=== PATIENT | male | born 1995 | race Caucasian/White ===

== ENCOUNTER 2023-01-31 23:37 | Emergency (ER) | payer SELFPAY ==
[2023-01-31 23:38] VITALS: BP 142/96; PULSE 90; RESP 16; TEMP 37.2; O2SAT 97; BMI 31.9
[2023-01-31 23:39] VITALS: BP 142/96
[2023-01-31 23:40] VITALS: PULSE 86; PULSE 87; RESP 8; O2SAT 96
--- NOTE | 2023-01-31 23:40 | ECG_ITS ---
[facility] Test Date: 2023-01-31 Pat Name: Tez Griffin Department: Room: - Gender: Male Resident Manager: : 1995 Requested By: NORBERT WESTBROOK Order Number: [id number] Reading MD: NORBERT WESTBROOK Measurements Intervals Gunter Rate: 86 P: 53 RI: 158 QRS: 52 QRSD: 88 T: 34 QT: 330 QTc: 374 Interpretive Statements 1100 Sinus rhythm 2420 RSR (QR) in lead V1/V2, consistent with right ventricular conduction delay 9130 borderline ECG No previous ECG available for comparison Electronically Signed On 02-02-2023 6:21:26 EST by NORBERT WESTBROOK
[2023-01-31 23:50] VITALS: PULSE 84; RESP 12; O2SAT 96
--- NOTE | 2023-01-31 23:55 | ED_ITS ---
HPI - General Adult General Chief complaint: Weakness Stated complaint: heart palp Time Seen by Provider: 01/31/23 23:41 Source: patient Mode of arrival: ambulance Limitations: no limitations History of Present Illness HPI narrative: This 27-year-old male who uses a vapor pen is brought to the emergency department by EMS from work. The patient states that his pulse has been jumping all around. He states he felt dizzy and nauseated. The patient explained to the nurses that he has had 2 heart attacks and 2 transient ischemic attacks. We reviewed his records and have not found any records that confirm this. He was seen in this emergency department in 2015 for chest wall pain and in 2022 for facial tingling. Does not see a financial sales manager, he does not have a family physician, he does not take any current medications. He states he was nauseated but did not vomit. He has no lower extremity pain or swelling. His eyes are injected and he states that is because he has not slept in a minute . He states he has trouble sleeping. He does have a history of anxiety. Related Data Home Medications Medication Instructions Recorded Confirmed No Known Home Medications 01/31/23 01/31/23 Allergies Allergy/AdvReac Type Severity Reaction Status Date / Time No Known Drug Allergies Allergy Verified 01/31/23 23:43 Review of Systems ROS Status of ROS 10 or more systems reviewed and unremarkable except as noted in history and below [facility] Social History Smoking status: Current every day smoker Exam Narrative Exam Narrative: Nurses note and vital signs reviewed and patient is not hypoxic.Blood pressure was midly elevated at 142/96. General: The patient appears well and in no apparent distress. Patient is resting comfortably on cart. Skin: Warm, dry, no pallor noted. There is no rash noted. Head: Normocephalic, atraumatic Eye: Conjunctiva are injected, pupils are equal and reactive Ears, Nose, Mouth, and Throat: oral mucosa is moist. Cardiovascular: Regular Rate and Rhythm S1S2, pulse noted to be irregular and was in the 80s when I walked into the room and 100 by the time I left Respiratory: Patient is in no distress, no accessory muscle use, lungs are clear to auscultation, no wheezing, rales or rhonchi Back: non-tender, no CVA tenderness bilaterally to percussion. GI: Normal bowel sounds, no tenderness to palpation, no masses appreciated. No rebound, guarding, or rigidity noted. Musculoskeletal: The patient has no evidence of calf tenderness, no pitting edema, symmetrical pulses noted bilaterally Neurological: A&O x4, normal speech Psychiatric: Cooperative, flat affect Constitutional Vital Signs, click to edit/add: Last Vital Signs Temp 99 F 01/31/23 23:38 Pulse 84 02/01/23 02:37 Resp 12 01/31/23 23:50 BP 133/79 02/01/23 02:38 Pulse Ox 96 01/31/23 23:50 O2 Del Method Room Air 01/31/23 23:38 Course Vital Signs Vital signs: Vital Signs Temperature 99 F 01/31/23 23:38 Pulse Rate 90 01/31/23 23:38 Respiratory Rate 16 01/31/23 23:38 Blood Pressure 142/96 H 01/31/23 23:38 Pulse Oximetry 97 01/31/23 23:38 Oxygen Delivery Method Room Air 01/31/23 23:38 Temperature 99 F 01/31/23 23:38 Pulse Rate 84 02/01/23 02:37 Respiratory Rate 12 01/31/23 23:50 Blood Pressure 133/79 02/01/23 02:38 Pulse Oximetry 96 01/31/23 23:50 Oxygen Delivery Method Room Air 01/31/23 23:38 Medical Decision Making MDM Narrative Medical decision making narrative: 27-year-old male is brought emergency department from work. He is complaining of palpitations and stating that his heart has been racing and slowing down which has been making him nauseated and dizzy. He also has not been able to sleep for the past several nights- stating he has insomnia. He denies any mendel chest pain. He denies any tobacco use. He states that he has had 2 heart attacks in t he past and 2 transient ischemic attacks however we reviewed his history and cannot find anything to substantiate this. Additionally he does not see a financial sales manager and is not on any chronic medications. He does use a vape pen but denies tobacco use. He was placed on a monitoring and evaluation advisor and EKG was done that was a sinus rhythm at 86 beats for minute with a Q-wave in lead 3. This is compared to an EKG from June 26 of this year which is unchanged. An IV was placed and he was given IV fluids, Zofran for his nausea and 324 mg baby aspirin. He has been on a monitoring and evaluation advisor while in the emergency department at the time of this dictation his pulse is 76, blood pressure is 110/71. He has not had any hypoxia. Routine labs are reviewed. He has a normal white count and hemoglobin. He has normal electrolytes. He has a normal troponin and d-dimer. Chest x-ray is negative for acute findings. Delta troponin is.................................. Medical Records Medical records narrative: [place] [address] XRay Report Signed Patient: Tez Griffin MR#: [id number] : 1995 Acct:[id number] Age/Sex: 27 / M ADM Date: 01/31/23 Loc: ER Attending Dr: Ordering Physician: Aminata Madrigal Date of Service: 02/01/23 Procedure(s): XR chest 1V Accession Number(s): [id number] cc: Aminata Madrigal; Physician,Non-Staff M.D.~ The [address] [address] Patient Name: TEZ GRIFFIN MRN: [id number] date: 1995 Sex: M Assigned Patient Location: ER Current Patient Location: ER Accession/Order Number: [id number] Exam Date: 02/01/2023 01:08 Report Date: 02/01/2023 01:43 At the request of: AMINATA MADRIGAL Procedure: XR chest 1V EXAM: XR chest 1V HISTORY: SOB COMPARISON: None. TECHNIQUE: One view of the chest was obtained. FINDINGS: The cardiac silhouette is mildly enlarged. There are mild left basilar opacities. A calcified granuloma is seen in the lower left lung. There is no significant pneumothorax or right pleural effusion. There is a possible small left pleural effusion. No acute osseous abnormality is seen. XR/XR chest 1V IMPRESSION: 1. Mildly enlarged cardiac silhouette with a possible small left pleural effusion and left basilar atelectasis. Electronically authenticated by: Jean MONAHAN Date: 02/01/2023 01:43 Lab Data Labs: Lab Results 01/31/23 02/01/23 Range/Units 00:05 01:20 WBC 5.4 (4.0-11.0) 10^3/uL RBC 4.50 L (4.70-6.10) 10^6/uL Hgb 13.6 L (14.0-18.0) g/dL Hct 40.1 L (42.0-54.0) % MCV 89.1 (80.0-94.0) fL MCH 30.2 (25.9-34.0) pg MCHC 33.9 (29.9-35.2) g/dL RDW 11.9 (11.0-15.0) % Plt Count 251 (150-450) 10^3/uL MPV 10.8 (9.5-13.5) fL Neut % (Auto) 58.6 (43.0-75.0) % Lymph % (Auto) 29.2 (20.5-60.0) % Rich % (Auto) 10.3 (1.7-12.0) % Eos % (Auto) 1.1 (0.9-7.0) % Baso % (Auto) 0.6 (0.2-2.0) % Neut # (Auto) 3.2 (1.4-6.5) 10^3/uL Lymph # (Auto) 1.6 (1.2-3.8) 10^3/uL Rich # (Auto) 0.6 (0.3-0.8) 10^3/uL Eos # (Auto) 0.1 (0.0-0.7) 10^3/uL Baso # (Auto) 0.0 (0.0-0.1) 10^3/uL Abs Immat Gran (auto) 0.01 (0.00-0.03) 10^3/uL Imm/Tot Granulo (auto) 0.2 (0.0-0.5) % D-Dimer 0.38 (<=0.59) mg/L FEU Sodium 137 (136-145) mmol/L Potassium 4.0 (3.5-5.1) mmol/L Chloride 105 (98-107) mmol/L Carbon Dioxide 27.7 (21.0-32.0) mmol/L Anion Gap 8.3 BUN 13.0 (7.0-18.0) mg/dL Creatinine 1.13 (0.70-1.30) mg/dL Est GFR ( Amer) >60 (>=60) Est GFR (Non-Af Amer) >60 (>=60) BUN/Creatinine Ratio 11.5 Glucose 97 (74-106) mg/dL Calcium 8.9 (8.5-10.1) mg/dL Total Bilirubin 0.5 (0.2-1.0) mg/dL AST 23 (15-37) U/L ALT 52 (16-63) U/L Alkaline Phosphatase 87 (46-116) U/L Troponin I High Sens 5.4 6.3 (4.0-76.1) pg/mL Total Protein 7.8 (6.4-8.2) g/dL Albumin 3.8 (3.4-5.0) g/dL Globulin 4.0 g/dL Albumin/Globulin Ratio 0.9 ECG Data Attestation: I personally reviewed and interpreted this ECG as follows: (Sinus rhythm at 86 bpm, RSR in lead V1 and V2, Q wave in lead 3, EKG compared to an EKG from 06/26/2022. There are no changes noted) Discharge Plan Discharge Chief Complaint: Weakness Clinical Impression: Palpitations Patient Disposition: Home, Self-Care Time of Disposition Decision: 02:30 Condition: Good Prescriptions / Home Meds: No Action No Known Home Medications Instructions: Heart Palpitations (ED) Additional Instructions: Follow up with [facility] as needed. Stand Alone Forms: Portal Instructions Referrals: Physician,Non-Staff, MD [Primary Care Provider] - 1 week Discharge Date/Time: 02/01/23 02:53
[2023-02-01] VITALS (19 sets, daily range): BP systolic 119–133; BP diastolic 71–79; PULSE 66–98
[2023-02-01] MEDS: ASPIRIN 81 MG TAB.CHEW 324 MG PO (00:09)
[2023-02-01] MEDS: ONDANSETRON PF 4 MG/2 ML VIAL IV (00:09)
[2023-02-01] MEDS: 0.9 % SODIUM CHLORIDE 1,000 ML 1000 ML IV (00:10)
[2023-02-01 00:12] LABS: Basophils Percent Auto 0.6 % (0.2-2.0); Eosinophils Absolute Auto 0.1 10^3/uL (0.0-0.7); Eosinophils Percent Auto 1.1 % (0.9-7.0); Hematocrit 40.1 % (42.0-54.0); Hemoglobin 13.6 g/dL (14.0-18.0); Immature Granulocytes Abs Auto 0.01 10^3/uL (0.00-0.03); Immature Granulocytes Pct Auto 0.2 % (0.0-0.5); Lymphocytes Absolute Auto 1.6 10^3/uL (1.2-3.8); Lymphocytes Percent Auto 29.2 % (20.5-60.0); Mean Corpuscular HGB Conc 33.9 g/dL (29.9-35.2); Mean Corpuscular Hemoglobin 30.2 pg (25.9-34.0); Mean Corpuscular Volume 89.1 fL (80.0-94.0); Mean Platelet Volume 10.8 fL (9.5-13.5); Monocytes Absolute Auto 0.6 10^3/uL (0.3-0.8); Monocytes Percent Auto 10.3 % (1.7-12.0); Neutrophils Absolute Auto 3.2 10^3/uL (1.4-6.5); Neutrophils Percent Auto 58.6 % (43.0-75.0); Platelet Count 251 10^3/uL (150-450); Red Cell Distribution Width 11.9 % (11.0-15.0); White Blood Count 5.4 10^3/uL (4.0-11.0)
--- NOTE | 2023-02-01 00:18 | PC.NURSE ---
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 He also reports that he has had a previous TIA.
[2023-02-01 00:29] LABS: Alanine Aminotransferase 52 U/L (16-63); Albumin Globulin Ratio 0.9; Albumin Level 3.8 g/dL (3.4-5.0); Alkaline Phosphatase 87 U/L (46-116); Anion Gap 8.3; Aspartate Amino Transferase 23 U/L (15-37); BUN Creatinine Ratio 11.5; Bilirubin Total 0.5 mg/dL (0.2-1.0); Calcium 8.9 mg/dL (8.5-10.1); Carbon Dioxide 27.7 mmol/L (21.0-32.0); Chloride 105 mmol/L (98-107); Estimated GFR (African America >60 (>=60); Estimated GFR (Non-African Ame >60 (>=60); Glucose 97 mg/dL (74-106); Sodium 137 mmol/L (136-145); Total Protein 7.8 g/dL (6.4-8.2); Troponin I High Sensitivity 5.4 pg/mL (4.0-76.1)
[2023-02-01 00:40] LABS: D Dimer 0.38 mg/L FEU (<=0.59)
--- NOTE | 2023-02-01 01:06 | XR_ITS ---
The [address] [address] Patient Name: GAVIOTA ALVAREZ MRN: [id number] date: 1995 Sex: M Assigned Patient Location: ER Current Patient Location: ER Accession/Order Number: [id number] Exam Date: 02/01/2023 01:08 Report Date: 02/01/2023 01:43 At the request of: NATHALY MARKER Procedure: XR chest 1V EXAM: XR chest 1V HISTORY: SOB COMPARISON: None. TECHNIQUE: One view of the chest was obtained. FINDINGS: The cardiac silhouette is mildly enlarged. There are mild left basilar opacities. A calcified granuloma is seen in the lower left lung. There is no significant pneumothorax or right pleural effusion. There is a possible small left pleural effusion. No acute osseous abnormality is seen. XR/XR chest 1V IMPRESSION: 1. Mildly enlarged cardiac silhouette with a possible small left pleural effusion and left basilar atelectasis. Electronically authenticated by: Jean MONAHAN Date: 02/01/2023 01:43
[2023-02-01 01:47] LABS: Troponin I High Sensitivity 6.3 pg/mL (4.0-76.1)
== END 2023-02-01 02:53 | disposition home or self-care (01) ==
PROVIDERS: Emergency Provider Emergency Medicine
DX: R00.2 Palpitations (principal); F17.290 Nicotine dependence, other tobacco product, uncomplicated
CPT/HCPCS: 36415; 71045; 80053; 84484; 85025; 85378; 93005; 96361; 96374; 99285

== ENCOUNTER 2023-04-06 07:15 | Emergency (ER) | payer SELFPAY ==
[2023-04-06 07:20] VITALS: BP 158/97; PULSE 91; RESP 18; TEMP 37; O2SAT 98; BMI 31.9
--- OUTSIDE RECORDS SUMMARY | 2023-04-06 07:24 | XMS_ITS | CCD ---
Author Name Unknown Address [address] [place] [address] Organization [facility] Care Team Providers Care Batching Operator Name Role Phone Unavailable Primary Care Provider Unavailabl e Sam Esquivel Attending Unavailable No, Physician Primary Care Provider Unavailabl e No, Physician Primary Care Provider Unavailabl e UBALDOTORITO ROSALES Attending NAVEEN Grubbs Referring Unavailable NO, PHYSICIAN Primary Care Unavailable UBALDOTORITO Attending NAVEEN Grubbs Referring Unavailable NO, PHYSICIAN Primary Care Unavailable UBALDOTORITO Attending NAVEEN Grubbs Referring Unavailable NO, PHYSICIAN Primary Care Unavailable UBALDOTORITO Attending NAVEEN Grubbs Referring Unavailable NO, PHYSICIAN Primary Care Unavailable COURSENJADA Admitting Unavailabl e COURSEN, JADA CISSE Attending Unavailabl e NO, PHYSICIAN Primary Care Unavailable NO, PHYSICIAN Primary Care Unavailable NAVEEN KEMP Admitting Unavailable VIRIDIANANAVEEN NARAYAN Attending Unavailable JAMEEL MENDEZ Admitting Unavailable JAMEEL MENDEZ Attending Unavailable NO, PHYSICIAN Primary Care Unavailable NO, PHYSICIAN Primary Care Unavailable UBALDOTORITO Admitting Unavai lable TORITO CONNER Attending Huan ELLISON, DR JANUARY Escobar Attending Unavailable SCOT, DR JANUARY Escobar Consulting Unavailable REQUEST, NONE LISTED Primary Care Unavaila antonette ELLISON, DR JANUARY Escobar Admitting Unavailable DIMITRI CASEY Consulting Unavailable TREY CASTANON Admitting Unavailable REQUEST, DR CORRALES LISTED Primary Care UnavailTREY Santos Attending Unavailable TREY CASTANON Consulting Unavailable NADEEM BOSE Consulting Unavailable GEORGETTE ROSE Unavailable Medications Current Medications Medication Drug Class(es) Dates Sig (Normalized) Sig (Original) acetaminophen 325 mg / HYDROcodone bitartrate 5 mg oral tablet (3 sources) Opioid Agonist Start: 07-16-2020 End: 07-21-2020 HYDROcodone-acetam inophen (NORCO) 5-325 mg per tablet Indications: Pilonidal cyst with abscess Take 1 (one) tablet by mouth every 6 (six) hours as needed for pain (Days supply per fill: 5) . 18 tablet 0 07/16/2020 07/21/2020 Active Start: 07-16-2020 End: 07-16-2020 take 1 tablet by mouth every eight hours as needed 1 tablet, Oral, Every 8 hours PRN, moderate to severe pain, post op pain, Starting Sun07/16/20 at 0751 doxycycline hyclate 100 mg oral tablet (1 source) Tetracycline-class Drug Start: 05-28-2020 End: 06-07-2020 take 1 tablet by mouth twice daily doxycycline hyclate (VIBRA-TABS) 100 MG tablet Take 1 (one) tablet (100 mg total) by mouth 2 (two) times a day for 10 days . 20 tablet 0 05/28/2020 06/07/2020 Active famotidine 20 mg oral tablet (7 sources) Histamine-2 Receptor Antagonist Start: 05-20-2020 End: 06-04-2020 take 1 tablet by mouth twice daily famotidine (PEPCID) 20 MG tablet Take 1 (one) tablet (20 mg total) by mouth 2 (two) times a day for 30 doses . 30 tablet 0 05/20/2020 Active Start: 08-25-2019 End: 08-25-2019 faMOTIdine (PEPCID) tablet 2 0 mg pantoprazole 20 mg delayed release oral tablet (6 sources) Proton Pump Inhibitor Start: 05-20-2020 End: 06-19-2020 take 1 tablet by mouth once daily pantoprazole (PROTONIX) 20 MG tablet Take 1 (one) tablet (20 mg total) by mouth daily . 30 tablet 0 05/20/2020 Active polyethylene glycol 3350 22224 mg powder for oral solution (2 sources) Osmotic Laxative Start: 07-16-2020 End: 07-26-2020 polyethylene glycol (Miralax) 17 gram/dose powder Take 17 (seventeen) g by mouth 2 (two) times a day as needed . 340 g 0 07/16/2020 07/26/2020 Active psyllium 3400 mg powder for oral suspension (3 sources) Start: 07-16-2020 psyllium husk, aspartame, 3.4 gram/5.8 gram Powd 1 rounded teaspoonful 2-3 times daily, indefinitely. . 1 Bottle 11 07/16/2020 Active Completed/Discontinued Medications Medication Drug Class(es) Dates Sig (Normalized) Sig (Original) albuterol 0.83 mg/ml inhalation solution (1 source) beta2-Adrenergic Agonist Start: 07-16-2020 End: 07-16-2020 2.5 mg, Inhalation, Every 10 min PRN, wheezing, shortness of breath, Starting Sun07/16/20 at 0934, PACU (only) calcium chloride 0.0014 meq/ml / potassium chloride 0.004 meq/ml / sodium chloride 0.103 meq/ml / sodium lactate 0.028 meq/ml injectable solution (2 sources) Start: 07-16-2020 End: 07-16-2020 take 25 mL intravenously every hour 25 mL/hr, Intravenous, Continuous, Starting Sun07/16/20 at 1030, PACU (only) Use if patient already has Lactated Ringers ceFAZolin 2000 mg injection (1 source) Cephalosporin Antibacterial Start: 07-16-2020 End: 07-16-2020 ceFAZolin (ANCEF) IVPB 2 g (premix) cephalexin 500 mg oral capsule (6 sources) Cephalosporin Antibacterial Start: 06-11-2020 End: 07-14-2020 take 1 capsule by mouth four times daily cephALEXin (Keflex) 500 MG capsule Take 1 (one) capsule (500 mg total) by mouth 4 (four) times a day . 40 capsule 0 06/11/2020 07/14/2020 Discontinued (Therapy completed) Start: 05-26-2020 End: 06-05-2020 take 1 capsule by mouth four times daily cephALEXin (KEFLEX) 500 MG capsule Take 1 (one) capsule (500 mg total) by mouth 4 (four) times a day for 10 days . 40 capsule 0 05/26/2020 06/05/2020 Active 1 ml dexamethasone phosphate 10 mg/ml injection (1 source) Corticosteroid Start: 07-16-2020 End: 07-16-2020 dexamethasone (DECADRON) injection diazePAM 5 mg oral tablet (1 source) Benzodiazepine Start: 07-16-2020 End: 07-16-2020 take 5 mg by mouth once 5 mg, Oral, Once, Sun07/16/20 at 0745, For 1 dose, Pre-Procedure Start: 07-16-2020 End: 07-16-2020 take 5 mg by mouth once 5 mg, Oral, Once, Sun 1 at 0745, For 1 dose, Pre-Procedure diphenhydrAMINE hydrochloride 25 mg oral tablet (1 source) Histamine-1 Receptor Antagonist Start: 08-25-2019 End: 08-25-2019 diphenhydrAMINE (BENADRYL) tablet 25 mg Start: 08-25-2019 End: 08-25-2019 diphenhydrAMINE (BENADRYL) t ablet 25 mg 1 ml fentaNYL 0.05 mg/ml injection (2 sources) Opioid Agonist Start: 07-16-2020 End: 07-16-2020 25 mcg, Intravenous, Every 5 min PRN, Pain, Starting Sun07/16/20 at 0934, For 4 doses, PACU (only) [] Do not give more than 100 mcg while in PACU. Haloperidol (1 source) Typical Antipsychotic Start: 07-16-2020 End: 07-16-2020 take 1 mg intravenously every twenty-four hours as needed 1 mg, Intravenous, Once as needed, Nausea or vomiting, Starting Sun07/16/20 at 0934, For 1 dose, PACU (only) Administer if ondansetron (Zofran), promethazine (Phenergan), metoclopromide (REGLAN), prochlorperazine (COMPAZINE) & nbsp;ineffective/n ot ordered, or as directed by anesthesia, as needed for nausea/vomiting&nb sp;May cause QT interval prolongation. 0.5 ml HYDROmorphone hydrochloride 1 mg/ml prefilled syringe (1 source) Opioid Agonist Start: 07-16-2020 End: 07-16-2020 0.5 mg, Intravenous, Every 10 min PRN, Pain, Starting Sun07/16/20 at 0934, For 6 doses, PACU (only) [] Give if fentanyl not effective or not ordered. [] Do not give more than 3 mg total. ibuprofen 400 mg oral tablet (1 source) Nonsteroidal Anti-inflammatory Drug Start: 04-28-2020 End: 04-28-2020 ibuprofen (ADVIL,MOTRIN) tablet 800 mg 4 ml labetalol hydrochloride 5 mg/ml cartridge (1 source) beta-Adrenergic Kilo Start: 07-16-2020 End: 07-16-2020 5 mg, Intravenous, Every 5 min PRN, SBP greater than 160 or DBP greater than 90 and heart rate is greater than 90, Starting Sun07/16/20 at 0934, For 4 doses, PACU (only) [] Do not give more than 20 mg total. [] Hold for HR less than 50. Lidocaine (1 source) Antiarrhythmic, Amide Local Anesthetic Start: 07-16-2020 End: 07-16-2020 lidocaine 20 mg/mL (2 %) injection naloxone (NARCAN) injection 0.1 mg (2 sources) Start: 07-16-2020 End: 07-16-2020 naloxone (NARCAN) injection 0.1 mg Start: 07-16-2020 End: 07-16-2020 naloxone (NARCAN) injection 0.1 mg 2 ml ondansetron 2 mg/ml injection (9 sources) Serotonin-3 Receptor Antagonist Start: 07-16-2020 End: 07-16-2020 4 mg, Intravenous, Every 15 min PRN, nausea, vomiting, Starting Sun07/16/20 at 0934, For 2 doses, PACU (only) Do not give more than 2 doses. Administer first as needed for nausea/vomiting, or as directed by anesthesia Start: 07-16-2020 End: 07-16-2020 take 1 tablet by mouth once 4 mg, Oral, Once, Sun07/16/20 at 0645, F or 1 dose, Pre-Procedure Orally disintegrating tablet: Open blister pack and place tablet on the tongue; tablet is formulated to dissolve on the tongue without water; do not split tablet; if patient unable to tolerate PO ondansetron, okay to give Ondansetron 4mg IV x 1 prn nausea/voming Formulation requires tablet remain in sealed package until immediately prior to dose being administered. Start: 05-20-2020 End: 05-27-2020 take 1 tablet by mouth every eight hours as needed ondansetron (Zofran ODT) 4 MG disintegra ting tablet Dissolve 1 (one) tablet (4 mg total) on top of tongue every 8 (eight) hours as needed for nausea . 20 tablet 0 05/20/2020 Active predniSONE 20 mg oral tablet (1 source) Start: 08-25-2019 End: 08-25-2019 predniSONE (DELTASONE) table t 60 mg Start: 08-25-2019 End: 08-25-2019 predniSONE (DELTASONE) table t 60 mg promethazine hydrochloride 25 mg oral tablet (1 source) Phenothiazine Start: 07-16-2020 End: 07-16-2020 take 1 tablet by mouth every twenty-four hours as needed 12.5 mg, Oral, Once as needed, nausea, vomiting, Starting Sun07/16/20 at 0934, For 1 dose, PACU (only) Administer if ondansetron (Zofran) ineffective or not ordered, and patient can tolerate oral administration, or as directed by anesthesia, as needed for nausea/vomiting 10 ml propofol 10 mg/ml injection (1 source) General Anesthetic Start: 07-16-2020 End: 07-16-2020 propofoL (DIPRIVAN) injection 72 hr scopolamine 0.0139 mg/hr transdermal system (1 source) Anticholinergic Start: 07-16-2020 End: 07-16-2020 apply 1 dose transdermal route once as needed for nausea and vomiting 1 patch, Transdermal, Once as needed, history of post op nausea and vomiting (PONV); excludes MAC cases (pain, opthalmology, etc.) and ECTs, Starting Sun07/16/20 at 0550, For 1 dose, Pre-Procedure Apply to left mastoid. Removed prior to discharge if no PONV 1000 ml sodium chloride 9 mg/ml injection (2 sources) Start: 07-16-2020 End: 07-16-2020 take 25 mL intravenously every hour 25 mL/hr, Intravenous, Continuous, Starting Sun07/16/20 at 1030, PACU (only) Use if patient already has Normal Saline Start: 07-16-2020 End: 07-16-2020 sodium chloride 0.9% (NS) succinylcholine (ANECTINE) injection (1 source) Start: 07-16-2020 End: 07-16-2020 succinylcholine (ANECTINE) injection sulfamethoxazole 800 mg / trimethoprim 160 mg oral tablet (6 sources) Dihydrofolate Reductase Inhibitor Antibacterial, Sulfonamide Antimicrobial Start: 06-11-2020 End: 07-14-2020 take 1 tablet by mouth twice daily sulfamethoxazole-tri methoprim (BACTRIM DS,SEPTRA DS) 800-160 mg per tablet Take 1 (one) tablet by mouth 2 (two) times a day . 20 tablet 0 06/11/2020 07/14/2020 Discontinued (Therapy completed) Start: 05-26-2020 End: 06-05-2020 take 1 tablet by mouth twice daily sulfamethoxazole-trimethoprim (BACTRIM DS,SEPTRA DS) 800-160 mg per tablet Take 1 (one) tablet by mouth 2 (two) times a day for 10 days . 20 tablet 0 05/26/2020 06/05/2020 Active Problems Active Problems Problem Classification Problem Date Documented Da te Episodic/Chronic Allergic reactions (1 source) Allergic reaction; Translations: [Allergic reaction, initial encounter] Episodic Other ear and sense organ disorders (1 source) Unspecified otitis externa, left ear; Translations: [UNS OTITIS EXTERNA LEFT EAR] Onset: 02-08-2022 Chronic Other nervous system disorders (4 sources) Paresthesia of skin; Translations: [PARESTHESIA OF SKIN] Onset: 06-26-2022 Episodic Screening and history of mental health and substance abuse codes (1 source) Personal history of nicotine dependence; Translations: [PERSONAL HISTORY OF NICOTINE DEPEND] Onset: 06-28-2022 Episodic Skin and subcutaneous tissue infections (20 sources) Pilonidal cyst with abscess; Translations: [Pilonidal cyst] Onset: 06-11-2020 06-11-2020 Episodic Transient cerebral ischemia (1 source) Transient cerebral ischemic attack, unspecified; Translations: [TRANS CERBRAL ISCHEMIC ATTACK UNS] Onset: 06-28-2022 Chronic Unclassified (1 source) CONTACT W/AND (SUSP) EXPOS COVID-19; Translations: [CONTACT W/AND (SUSP) EXPOS COVID-19] Onset: 06-28-2022 Viral infection (1 source) Disease caused by 2019-nCoV; Translations: [COVID-19] Past or Other Problems Problem Classification Problem Date Documented Da te Episodic/Chronic Conditions associated with dizziness or vertigo (1 source) Dizziness and giddiness; Translations: [DIZZINESS AND GIDDINESS] Onset: 02-08-2022 Episodic Other ear and sense organ disorders (3 sources) Otalgia, left ear; Translations: [OTALGIA LEFT EAR] Onset: 02-07-2022 Episodic Other nervous system disorders (1 source) Ataxia, unspecified; Translations: [ATAXIA UNSPECIFIED] Onset: 02-08-2022 Episodic Otitis media and related conditions (1 source) Otitis media, unspecified, left ear; Translations: [OTITIS MEDIA UNSPECIFIED LEFT EAR] Onset: 02-08-2022 Episodic Results Test Name Value Interpretation Reference Range Facil toni CARDIAC JANUARY ADMITon 023 CK [Catalytic activity/Vol] 113 U/L Normal 39-308 [facility] Comment on above: Performed By: #### P TT, PT #### [facility] [address] [address] [address] Orville Radford CK.MB [Mass/Vol] ng/mL Normal <=3.60 [facility] Comment on above: Performed By: #### P TT, PT #### [facility] [address] [address] [address] Orville Radford HSTROP 5.1 pg/mL Normal 4.0-76.1 [facility] Comment on above: Result Comment: CUT- OFF POINTS HAVE BEEN ESTABLISHED BASED ON THE FOURTH UNIVERSAL DEFINITIONS OF MYOCARDIAL INFARCTION. THE UPPER REFERENCE LIMIT (URL) OF TROPONIN, DEFINED THE 99TH PERCENTILE OF cTnI DISTRIBUTION IN A REFERENCE POPULATION, HAS BEEN CONFIRMED THE DECISION THRESHOLD FOR VT DIAGNOSIS. Performed By: #### P TT, PT #### [facility] [address] [address] [address] Orville Radford PERRY 63 ng/mL Normal 16-96 [facility] Comment on above: Performed By: #### P TT, PT #### [facility] [address] [address] [address] Orville Radford CBC AUTO DIFFon 04-03-2023 BASO # 0.0 103/ul Normal 0.0-0.1 [facility] Comment on above: Performed By: #### C BC #### [facility] [address] [address] [address] Orville Radford Basophils/100 WBC (Bld) 0.4 % Normal 0.2-2.0 [facility] Comment on above: Performed By: #### C BC #### [facility] [address] [address] [address] Orville Radford EO # 0.1 103/ul Normal 0.0-0.7 [facility] Comment on above: Performed By: #### C BC #### [facility] [address] [place] [address] Dr. Orville Radford Eosinophils/100 WBC (Bld) 1.8 % Normal 0.9-7.0 [facility] Comment on above: Performed By: #### C BC #### [facility] [address] [place] [address] Dr. Orville Radford Erythrocyte distribution width (RBC) [Ratio] 11.9 % Normal 11.0-15.0 [facility] Comment on above: Performed By: #### C BC #### [facility] [address] [place] [address] Dr. Orville Radford Hematocrit (Bld) [Volume fraction] 38.1 % Critically low 42.0-54.0 [facility] Comment on above: Performed By: #### C BC #### [facility] [address] [place] [address] Dr. Orville Radford Hemoglobin (Bld) [Mass/Vol] 13.1 g/dL Critically low 14.0-18.0 [facility] Comment on above: Performed By: #### C BC #### [facility] [address] [place] [address] Dr. Orville Radford IG # 0.02 10e3/ul Normal 0.00-0.03 [facility] Comment on above: Performed By: #### C BC #### [facility] [address] [place] [address] Dr. Orville Radford IG % 0.3 % Normal 0.0-0.5 [facility] Comment on above: Performed By: #### C BC #### [facility] [address] [place] [address] Dr. Orville Radford LYMPH # 2.5 103/ul Normal 1.2-3.8 [facility] Comment on above: Performed By: #### C BC #### [facility] [address] [place] [address] Dr. Orville Radford Lymphocytes/100 WBC (Bld) 34.4 % Normal 20.5-60.0 [facility] Comment on above: Performed By: #### C BC #### [facility] [address] [place] [address] Dr. Orville Radford MANUAL DIFF REQ NO Normal [facility] Comment on above: Performed By: #### C BC #### [facility] [address] [place] [address] Dr. Orville Radford MCH (RBC) [Entitic mass] 30.1 pg Normal 25.9-34.0 [facility] Comment on above: Performed By: #### C BC #### [facility] [address] [place] [address] Dr. Orville Radford MCHC (RBC) [Mass/Vol] 34.4 g/dL Normal 29.9-35.2 [facility] Comment on above: Performed By: #### C BC #### [facility] [address] [place] [address] Dr. Orville Radford MCV (RBC) [Entitic vol] 87.6 fL Normal 80.0-94.0 [facility] Comment on above: Performed By: #### C BC #### [facility] [address] [place] [address] Dr. Orville Radford MONO # 0.8 103/ul Normal 0.3-0.8 [facility] Comment on above: Performed By: #### C BC #### [facility] [address] [place] [address] Dr. Orville Radford Monocytes/100 WBC (Bld) 11.0 % Normal 1.7-12.0 [facility] Comment on above: Performed By: #### C BC #### [facility] [address] [place] [address] Dr. Orville Radford NEUT # 3.9 103/ul Normal 1.4-6.5 [facility] Comment on above: Performed By: #### C BC #### [facility] [address] [place] [address] Dr. Orville Radford Neutrophils/100 WBC (Bld) 52.1 % Normal 43.0-75.0 [facility] Comment on above: Performed By: #### C BC #### [facility] [address] [place] [address] Dr. Orville Radford Platelet mean volume (Bld) [Entitic vol] 10.5 fL Normal 9.5-13.5 [facility] Comment on above: Performed By: #### C BC #### [facility] [address] [place] [address] Dr. Orville Radford PLT 252 103/ul Normal 150-450 [facility] Comment on above: Performed By: #### C BC #### [facility] [address] [place] [address] Dr. Orville Radford RBC 4.35 106/ul Critically low 4.70-6.10 [facility] Comment on above: Performed By: #### C BC #### [facility] [address] [place] [address] Dr. Orville Radford WBC 7.4 103/ul Normal 4.0-11.0 [facility] Comment on above: Performed By: #### C BC #### [facility] [address] [place] [address] STROKE HEAD WOon 06-27-19 CT STROKE HEAD WO INDICATION: 26 years old; Male. [Extremity weakness lasting 10 minutes. Subtle onset of numbness and tingling in left side of face and left arm. Resolved now. Anxiety attacks all week . TECHNIQUE: CT Head (ax/cor/sag reformats). Ionizing radiation dose reduced via iterative reconstruction/FBP blend and body size kV/mA adjustment. Comparison: Head CT dated 02/06/2022. FINDINGS: POSTOPERATIVE CHANGES: None. BRAIN PARENCHYMA: No focal lesions. No mass effect. No midline shift or herniation. No intraparenchymal or extra-axial hemorrhage. Normal tariq/white differentiation. VENTRICLES/EXTRA-AXI AL SPACES: Normal for patient's age. There is redemonstration of asymmetry in the size the right lateral ventricle which is asymmetrically larger than the left. The appearance is most consistent with developmental asymmetry. SINUSES/MASTOIDS: The visualized sinuses are clear. Mastoid air cells are clear. MSK: No displaced or depressed calvarial fracture is noted. OTHER: No hyperdense intraluminal thrombus. IMPRESSION: 1. No acute intracranial abnormality. No hemorrhage or mass effect. Recommend MRI with diffusion imaging for more sensitive evaluation of acute infarction. Electronically authenticated by: NADEEM BOSE Date: 2022-06-26 01:46 Normal [facility] CTA NECK WO W CONon 06-27-19 CTA NECK WO W CON CTA HEAD WO W CON, CTA NECK WO W CON INDICATION:26 years old; evaluate for infarction. TECHNIQUE: CT angiogram of the head and neck was performed. Coronal, sagittal and 3-D reformats were created and reviewed. IV contrast Omnipaque 350 100mL. No complications . Carotid stenosis measurements were made according to the NASCET criteria. Ionizing radiation dose reduced via iterative reconstruction/FBP blend and body size kV/mA adjustment. COMPARISON: Head CT dated 06/26/2022 1:26 AM. The examination is suboptimal secondary to timing issues. There is venous contrast with poor arterial opacification. The study is poorly diagnostic for this reason. FINDINGS: NECK FINDINGS: AORTIC ARCH: Normal origin of the innominate, left common carotid and left subclavian arteries. ANTERIOR CIRCULATION: Allowing for under opacification, common carotid arteries are patent. Carotid bifurcations are patent. Cervical ICA are patent. The distal cervical ICA are partially obscured by overlying venous contrast. POSTERIOR CIRCULATION: The V1, V2, and V3 segments are grossly patent allowing for under opacification. DEVELOPMENTAL ANOMALIES: None. OTHER: No thyroid nodule or adenopathy. HEAD BRAIN: Please see the report of the noncontrast head CT. ANTERIOR CIRCULATION: The intrapetrous, intracavernous, supraclinoid ICA are grossly patent intracranial termini are grossly patent. Allowing for the degree of contrast opacification, the DAVE and MCA are patent. No stenosis or thrombus. No gross evidence of aneurysm. Distal distributions appear grossly symmetric. POSTERIOR CIRCULATION: The V4 segments are grossly patent. Right PICA is patent. Basilar artery is grossly patent. SCA and DOWELER are patent. DEVELOPMENTAL ANOMALIES: None. OTHER: No gross evidence of pathologic enhancement is seen. IMPRESSION: 1. Suboptimal examination due to inadequate arterial opacification with venous contamination due to timing issues. 2. Allowing for the degree of contrast opacification, there is no gross evidence of high-grade stenosis or luminal thrombus. If there is continued suspicion for intracranial infarction, then MRI with diffusion imaging would be most sensitive. Electronically authenticated by: NADEEM BOSE Date: 2022-06-26 03:09 Normal [facility] Covid-19 PCR ([facility])on SARS-CoV-2 (COVID-19) RNA BRIANNE+probe Ql (Unsp spec) Not detected Normal NOT DETECTED [facility] Comment on above: Result Comment: This test is not yet approved or cleared by the [place] FDA. When there are no FDA-approved or cleared tests available, and other criteria are met, FDA can make tests available under an emergency access mechanism called an Emergency Use Authorization (EUA). The EUA for this test is supported by the [place] of Health and Human Service's (HHS's) declaration that circumstances exist to justify the emergency use of in vitro diagnostics for the detection and/or diagnosis of the virus that causes COVID-19. This EUA will remain in effect (meaning this test can be used) for the duration of the COVID-19 declaration justifying emergency of IVDs, unless it is terminated or revoked by FDA (after which the test may no longer be used). When diagnostic testing is negative, the possibility of a false negative should be considered in the context of a patient's recent exposures and the presence of clinical signs and symptoms consistent with SARS-CoV-2. Performed By: #### C VDTB #### [facility] [address] [place] [id number] [address] Orville Radford DRUG SCREEN RAPID (URINE)on 06-26-2022 AMP Negative Normal NEGATIVE [facility] Comment on above: Performed By: #### P TT, PT #### [facility] [address] [place] [address] Dr. Orville Radford BAR Negative Normal NEGATIVE [facility] Comment on above: Performed By: #### P TT, PT #### [facility] [address] [place] [address] Dr. Orville Radford BUP Negative Normal NEGATIVE [facility] Comment on above: Performed By: #### P TT, PT #### [facility] [address] [place] [address] Dr. Orville Radford BZO Negative Normal NEGATIVE [facility] Comment on above: Performed By: #### P TT, PT #### [facility] [address] [place] [address] Dr. Orville Radford DESHAWN Negative Normal NEGATIVE [facility] Comment on above: Performed By: #### P TT, PT #### [facility] [address] [place] [address] Dr. Orville Radford CUT-OFFS SEE BELOW Normal [facility] Comment on above: Result Comment: AMP (Amphetamine): 500ng/mL, BAR (Barbituates): 200 ng/mL, BZO (Benzodiazepines): 150 ng/mL, BUP (Buprenorphine): 10 ng/mL, DESHAWN (Cocaine): 150 ng/mL, mAMP (Methamphetamine): 500 ng/mL, MTD (Methadone): 200 ng/mL, OPI (Opiates): 100 ng/mL, OXY (Oxycodone): 100 ng/mL, PCP (Phencyclidine): 25 ng/mL, PPX (Propoxyphene): 300 ng/mL, THC (Cannabinoids): 50 ng/mL, TCA (Trycyclic Antidepressants): 300 ng/mL Performed By: #### P TT, PT #### [facility] [address] [place] [address] Dr. Orville Radford DRUG CUT HEADER DRUG CLASS TEST SYSTEM CUT-OFF CONCENTRATIONS ARE FOLLOWS: Normal [facility] Comment on above: Performed By: #### P TT, PT #### [facility] [address] [place] [address] Dr. Orville Radford mAMP Negative Normal NEGATIVE [facility] Comment on above: Performed By: #### P TT, PT #### [facility] [address] [place] [address] Dr. Orville Radford MTD Negative Normal NEGATIVE [facility] Comment on above: Performed By: #### P TT, PT #### [facility] [address] [place] [address] Dr. Orville Radford OPI Negative Normal NEGATIVE [facility] Comment on above: Performed By: #### P TT, PT #### [facility] [address] [place] [address] Dr. Orville Radford OXY Negative Normal NEGATIVE [facility] Comment on above: Performed By: #### P TT, PT #### [facility] [address] [place] [address] Dr. Orville Radford PCP Negative Normal NEGATIVE [facility] Comment on above: Performed By: #### P TT, PT #### [facility] [address] [place] [address] Dr. Orville Radford PPX Negative Normal NEGATIVE [facility] Comment on above: Performed By: #### P TT, PT #### [facility] [address] [place] [address] Dr. Orville Radford TCA Negative Normal NEGATIVE [facility] Comment on above: Performed By: #### P TT, PT #### [facility] [address] [place] [address] Dr. Orville Radford THC Negative Normal NEGATIVE [facility] Comment on above: Performed By: #### P TT, PT #### [facility] [address] [place] [address] Dr. Orville Radford ER URINE PROFILEon 3 Bilirubin Ql (U) Negative Normal NEGATIVE [facility] Comment on above: Performed By: #### D MIKAYLA, ERUR #### [facility] [address] [place] [address] Dr. Orville Radford Clarity (U) CLEAR Normal CLEAR [facility] Comment on above: Performed By: #### D MIKAYLA, ERUR #### [facility] [address] [place] [address] Dr. Orville Radford Color (U) LT. YELLOW Normal YELLOW [facility] Comment on above: Performed By: #### D MIKAYLA, ERUR #### [facility] [address] [address] [address] Orville COMBS A micrscopic examination will be performed if indicated. Normal [facility] Comment on above: Performed By: #### D MIKAYLA, ERUR #### [facility] [address] [address] [address] Orville Radford Glucose Ql (U) Negative Normal NEGATIVE [facility] Comment on above: Performed By: #### D MIKAYLA, ERUR #### [facility] [address] [address] [address] Orville Radford Hemoglobin Ql (U) Negative Normal NEGATIVE [facility] Comment on above: Performed By: #### D MIKAYLA, ERUR #### [facility] [address] [place] [address] Dr. Orville Radford Ketones Ql (U) Negative Normal NEGATIVE [facility] Comment on above: Performed By: #### D MIKAYLA, ERUR #### [facility] [address] [address] [address] Orville Radford LEUKOCYTES Negative Normal NEGATIVE [facility] Comment on above: Performed By: #### D MIKAYLA, ERUR #### [facility] [address] [place] [address] Dr. Orville Radford Nitrite Ql (U) Negative Normal NEGATIVE [facility] Comment on above: Performed By: #### D MIKAYLA, ERUR #### [facility] [address] [address] [address] Orville Radford pH (U) 6.0 [pH] Normal 5-9 [facility] Comment on above: Performed By: #### D MIKAYLA, ERUR #### [facility] [address] [address] [address] Orville Radford SPEC GRAVITY 1.010 Normal 1.005-<=1.025 [facility] Comment on above: Performed By: #### D MIKAYLA, ERUR #### [facility] [address] [place] [address] Dr. Orville Radford UA PROTEIN Negative Normal NEGATIVE/ TRACE [facility] Comment on above: Performed By: #### D MIKAYLA, ERUR #### [facility] [address] [place] [address] Dr. Orville Radford UR MICRO IND NOT INDICATED Normal [facility] [place] Comment on above: Performed By: #### D MIKAYLA, ERUR #### [facility] [address] [place] [address] Dr. Orville Radford Urobilinogen Qn (U) 0.2 {Hannah'U}/dL Normal 0.2 - 1. 0 [facility] Comment on above: Performed By: #### D MIKAYLA, ERUR #### [facility] [address] [place] [address] Dr. Orville Radford PROF 14(COMP METB)on 023 Albumin [Mass/Vol] 3.4 g/dL Normal 3.4-5.0 [facility] Comment on above: Performed By: #### P TT, PT #### [facility] [address] [place] [address] Dr. Orville Radford Albumin/Globulin [Mass ratio] 1.0 {ratio} Normal [facility] Comment on above: Performed By: #### P TT, PT #### [facility] [address] [place] [address] Dr. Orville Radford ALP [Catalytic activity/Vol] 85 U/L Normal 46-116 [facility] Comment on above: Performed By: #### P TT, PT #### [facility] [address] [place] [address] Dr. Orville Radford ALT [Catalytic activity/Vol] 79 U/L Critically high 16-63 [facility] Comment on above: Performed By: #### P TT, PT #### [facility] [address] [place] [address] Dr. Orville Radford Anion gap [Moles/Vol] 12.5 mmol/L Normal [facility] Comment on above: Performed By: #### P TT, PT #### [facility] [address] [address] [address] Orville Radford AST [Catalytic activity/Vol] 35 U/L Normal 15-37 [facility] Comment on above: Performed By: #### P TT, PT #### [facility] [address] [address] [address] Orville Radford Bilirubin [Mass/Vol] 0.5 mg/dL Normal 0.2-1.0 [facility] Comment on above: Performed By: #### P TT, PT #### [facility] [address] [address] [address] Orville Radford Calcium [Mass/Vol] 8.6 mg/dL Normal 8.5-10.1 [facility] Comment on above: Performed By: #### P TT, PT #### [facility] [address] [place] [address] Dr. Orville Radford Chloride [Moles/Vol] 102 mmol/L Normal 98-107 [facility] Comment on above: Performed By: #### P TT, PT #### [facility] [address] [address] [address] Orville Radford CO2 [Moles/Vol] 26.1 mmol/L Normal 21.0-32.0 [facility] Comment on above: Performed By: #### P TT, PT #### [facility] [address] [place] [address] Dr. Orville Radford Creatinine [Mass/Vol] 1.12 mg/dL Normal 0.70-1.30 [facility] Comment on above: Performed By: #### P TT, PT #### [facility] [address] [place] [address] Dr. Orville Radford EGFR-AF DUTCH >60 Normal >=60 [facility] Comment on above: Performed By: #### P TT, PT #### [facility] [address] [place] [address] Dr. Orville Radford EGFR-NON AF DUTCH >60 Normal >=60 [facility] Comment on above: Performed By: #### P TT, PT #### [facility] [address] [address] [address] Orville Radford Globulin (S) [Mass/Vol] 3.5 g/dL Normal [facility] Comment on above: Performed By: #### P TT, PT #### [facility] [address] [place] [address] Dr. Orville Radford Glucose [Mass/Vol] 110 mg/dL Critically high 74-106 [facility] Comment on above: Performed By: #### P TT, PT #### [facility] [address] [place] [address] Dr. Orville Radford Potassium [Moles/Vol] 3.6 mmol/L Normal 3.5-5.1 [facility] Comment on above: Performed By: #### P TT, PT #### [facility] [address] [place] [address] Dr. Orville Radford Protein [Mass/Vol] 6.9 g/dL Normal 6.4-8.2 [facility] Comment on above: Performed By: #### P TT, PT #### [facility] [address] [place] [address] Dr. Orville Radford Sodium [Moles/Vol] 137 mmol/L Normal 136-145 [facility] Comment on above: Performed By: #### P TT, PT #### [facility] [address] [place] [address] Dr. Orville Radford Urea nitrogen [Mass/Vol] 13.0 mg/dL Normal 7.0-18.0 [facility] Comment on above: Performed By: #### P TT, PT #### [facility] [address] [place] [address] Dr. Orville Radford Urea nitrogen/Creatinine [Mass ratio] 11.6 mg/mg Normal [facility] Comment on above: Performed By: #### P TT, PT #### [facility] [address] [place] [address] Dr. Orville Radford PROTIMEon 06-26-2022 INR Coag (PPP) [Relative time] 0.95 {INR} Normal [facility] Comment on above: Performed By: #### P TT, PT #### [facility] [address] [place] [address] Dr. Orville Radford INR GUIDELINES SEE BELOW Normal [facility] Comment on above: Result Comment: MALIK RED INR: 2.0 - 3.0 CONDITIONS NOT LISTED BELOW 2.5 - 3.5 FOR PROSTHETIC HEART VALVE REPLACEMENT 2.5 - 3.5 RECURRENT THROMBOSIS Performed By: #### P TT, PT #### [facility] [address] [place] [address] Dr. Orville Radford PT Coag (PPP) [Time] 10.1 s Normal 9.0-11.6 [facility] Comment on above: Performed By: #### P TT, PT #### [facility] [address] [place] [address] Dr. Orville Radford PTTon 06-26-2022 aPTT Coag (Bld) [Time] 24.2 s Normal 22.3-36.2 [facility] Comment on above: Performed By: #### P TT, PT #### [facility] [address] [place] [address] Dr. Orville Radford SYMPTOMATIC COVID-19 ANTIGEN on 06-26-2022 EUA Statement SEE BELOW Normal [facility] Comment on above: Result Comment: This test has not been FDA cleared or approved, but has been authorized by the FDA under an Emergency Use Authorization (EUA) for use by authorized laboratories certified under CLIA that meet the requirements to perform moderate or high complexity testing. This test has been authorized only for the detection of proteins from SARS-CoV-2, not for any other viruses or pathogens. The emergency use of this test is authorized for the duration of the declaration that circumstances exist justifying the authorization of emergency use of in vitro diagnostic tests for detection and/or diagnosis of Covid-19 under section 564(b)(1) of the Act, 21 U.S.C. 360bbb-3(b)(1), unless the declaration is terminated or authorization is revoked sooner. Performed By: #### P TT, PT #### [facility] [address] [place] [address] Dr. Orville Radford SARS-CoV-2 (COVID-19) RNA BRIANNE+probe Ql (Unsp spec) Negative Normal NEGATIVE [facility] Comment on above: Performed By: #### P TT, PT #### [facility] [address] [id number] Orville Radford XR CHEST 1 Von 06-26-2022 XR CHEST 1 V EXAM: XR CHEST 1 V HISTORY: Cerebrovascular accident COMPARISON: Chest x-ray 05/20/2020 TECHNIQUE: Single frontal view chest x-ray FINDINGS: No lung consolidation, large pleural effusions, pneumothorax, or acute bony abnormality. Cardiac silhouette, similar to prior exam and unremarkable. IMPRESSION: No radiographic evidence for acute chest abnormality. Electronically authenticated by: GEORGETTE ROSE Date: 2022-06-26 01:32 Normal [facility] CT HEAD WO CONon 02-07-2022 CT HEAD WO CON CT HEAD WO CON: 02/06/2022 11:26 PM EST CLINICAL HISTORY: 26 years old Male with BENIGN PAROXYSMAL VERTIGO, UNSPECIFIED EAR. Ear pain with dizziness and nausea. TECHNIQUE: CT HEAD WO CON was performed without intravenous contrast administration. Axial CT images are obtained as well as sagittal and coronal reformations. Dose reduction techniques were achieved by using automated exposure control and/or adjustment of mA and/or kV according to patient size and/or use of iterative reconstruction technique. COMPARISON: None available. FINDINGS: Asymmetric enlargement of the right lateral ventricle in comparison to the left possibly congenital. No hydrocephalus. 1No intracranial hemorrhage or extra-axial fluid collection is identified. The tariq-white matter differentiation is preserved. There is no evidence of focal mass or midline shift. No focal areas of abnormal diminished or increased attenuation are seen within the cerebral or cerebellar hemispheres. No appreciable scalp soft tissue swelling or depressed skull fractures are seen. Mucosal thickenings of the ethmoid air cells are present. The remaining paranasal sinuses appear normally aerated. Mastoid air cells are normally aerated bilaterally. IMPRESSION: No intracranial hemorrhage, mass effect or midline shift. Electronically authenticated by: DIMITRI CSAEY Date: 2022-02-07 00:31 Normal [facility] AIRWAY ETTOrdered By: Andrew Michel on 07-16-2020 Andrew Michel, BENEFITS TECHNICIAN 07/16/2020 9:12 AM ETT Airway Mask ventilation: mask ventilation not attempted Technique: intubating stylet and video laryngoscopy Type: oral Tube size: 7.5 mm Final laryngoscope: video laryngoscope 3 Location: oral Final grade: 1 Insertion attempts: 1 Placement verification: auscultation, end tidal CO2, symmetrical chest wall movement and cuff palpation Secured at: 22 cm (measured from the teeth) Secured by: tape Bite block: none Lip/tooth/tongue trauma: no [facility] AN PERIPHERAL IVOrdered By: Chase Sutton on 07-16-2020 Scott Sorto 07/16/2020 10:13 AM Peripheral IV Related to anesthetic: yes Size: 20 G Orientation: right Location: hand Site prep: alcohol Local anesthetic: none Technique: anatomical landmarks Number of attempts: 1 [facility] Glucose (Bld) [Mass/Vol]Orde red By: Torito Conner on 07-16-2020 Glucose [Mass/Vol] 93 mg/dL 65 - 99 mg/dL [facility] Interpretation and review of laboratory results Normal [facility] Glucose (Bld) [Mass/Vol]Orde red By: Nam Blair on 07-16-2020 Glucose [Mass/Vol] 93 mg/dL [facility] Interpretation and review of laboratory results Normal [facility] CT ABDOMEN PELVIS WITH IV CO NTRAST ONLYon 05-20-2020 CT ABDOMEN PELVIS WITH IV CONTRAST ONLY EXAMINATION: CT ABDOMEN PELVIS WITH IV CONTRAST ONLY HISTORY: ORDERING SYSTEM PROVIDED HISTORY: abdominal pain, hematemesis, TECHNOLOGIST PROVIDED HISTORY: Illness/Other Reason for exam: abdominal pain, hematemesis Encounter Type: Initial Additional signs and symptoms: abdominal pain, hematemesis ORDERING SYSTEM PROVIDED DIAGNOSIS CODES: COMPARISON: 05/12/2017 TECHNIQUE: Following the uneventful administration of 75 mL Isovue-370 IV contrast, helical imaging of the abdomen and pelvis was performed. Multiplanar reformats are submitted. Dose reduction techniques were achieved by using: automated exposure control and/or adjustment of mA and/or kV according to patient size and/or use of iterative reconstruction technique. FINDINGS: ABDOMEN: The lung bases are clear. The heart size is normal. No pleural or pericardial effusion. The liver demonstrates normal morphology and attenuation without focal suspicious hepatic lesion. Gallbladder is present without calcified gallstones or pericholecystic abnormality. The spleen, pancreas and adrenal glands are unremarkable. There is symmetric enhancement the kidneys. No obstructive uropathy or nephroureterolithias is. The right kidney is rotated. PELVIS: There is no free air, bowel obstruction or pneumatosis. The appendix is normal. The bladder is decompressed. The prostate gland is normal. The abdominal aorta is normal. No retroperitoneal or abdominopelvic lymphadenopathy. No acute or aggressive osseous abnormality identified. IMPRESSION: 1. No acute infectious, inflammatory or obstructive process identified in the abdomen or pelvis. Workstation ID: [id number] Dictated by: MAEVE RODNEY on Jackie May 20, 2020 2:08:01 PM EST Transcribed by: MAEVE RODNEY on [facility] May 20, 2020 2:08:01 PM EST Finalized by: MAEVE RODNEY on [facility] May 20, 2020 2:08:01 PM EST Normal [facility] Comment on above: Order Comment: Injur y/Trauma or Illness?:Illness/Other How long have you had these symptoms (acute/chronic)?:Acute Reason for exam?:abdominal pain, hematemesis Type of Exam?:Initial Additional signs and symptoms?:abdominal pain, hematemesis XR CHEST PA/APon 05-20-2020 XR CHEST PA/AP EXAMINATION: XR CHEST PA/AP 05/20/2020 1:34 pm HISTORY: ORDERING SYSTEM PROVIDED HISTORY: tachycardia, TECHNOLOGIST PROVIDED HISTORY: Illness/Other Reason for exam: Main complaint is nausea vomiting-tachycardia today-denies any chest pain or sob at this time Cancer History: n Surgery, RadiationHistory: n Encounter Type: Initial Additional signs and symptoms: na ORDERING SYSTEM PROVIDED DIAGNOSIS CODES: COMPARISON: 12/16/2019 FINDINGS: Shallow lungs, otherwise the lungs are clear. Heart size is stable. No pleural effusion or pneumothorax. No acute osseous abnormality identified. IMPRESSION: No active disease in the chest. Workstation ID: [id number] Dictated by: MAEVE RODNEY on [facility] May 20, 2020 2:02:50 PM EST Transcribed by: MAEVE RODNEY on [facility] May 20, 2020 2:02:50 PM EST Finalized by: MAEVE RODNEY on [facility] May 20, 2020 2:02:50 PM EST Normal [facility] Comment on above: Order Comment: Injur y/Trauma or Illness?:Illness/Other How long have you had these symptoms (acute/chronic)?:Acute Reason for exam?:Main complaint is nausea vomiting-tachycardia today-denies any chest pain or sob at this time History of cancer?:n Surgeries, chemotherapy, or radiation?:n Type of Exam?:Initial Additional signs and symptoms?:na COVID-19/INFLUENZA A,B MOLEC ULARon 04-28-2020 SARS-CoV-2 (COVID-19) Ab IA Ql SARS-COV-2 (JULIAN): Detected INFLUENZA A (JULIAN): Not Detected INFLUENZA B (JULIAN): Not Detected Normal Not Detected [facility] Comment on above: Order Comment: This test was performed under the FDA's Emergency Use Authorization (EUA). Testing was performed using the [facility] SARS-CoV-2 RT-PCR AND Influenza A/B Nucleic Acid Test on the [employer] System. This test has not been approved for use in asymptomatic patients and its performance in this patient population has not been evaluated. Negative results do not rule out the presence of SARS-CoV-2, influenza A, and/or influenza B. Fact sheets for the EUA can be found at the following links: For Healthcare Providers: https://www.fda.gov/media/743973/download For Patients: https://www.fda.gov/media/685785/download Performed By: #### L [id number] #### [facility] [address] [address] Cathy Puente M.D. [id number] COVID-19/Influenza A,B Molec ularOrdered By: Jaad Valerio on 04-28-2020 SARS-CoV-2 (COVID-19) RNA BRIANNE+probe Ql (Resp) Detected Abnormal Not Detected [facility] Rapid Strep ScreenOrdered By : Jada aVlerio on 04-28-2020 S. pyogenes Ag Ql (Throat) Negative Presumptive Negative for Group A Streptococcus [facility] S. pyogenes Ag Ql (Throat)Or dered By: Jada Valerio on 04-28-2020 Interpretation and review of laboratory results Normal [facility] SARS-CoV-2 (COVID-19) RNA NA A+probe Ql (Resp)Ordered By: Jada Valerio on 04-28-2020 Influenza A Not detected [facility] Detected [facility] Influ[facility] B Not detected [facility] Interpretation and review of laboratory results Abnormal [facility] This test was performed under the FDA's Emergency Use Authorization (EUA). Testing was performed using the [facility] [facility] SARS-CoV-2 RT-PCR & Influenza A/B Nucleic Acid Test on the [employer] System. This test has not been approved for use in asymptomatic patients and its performance in this patient population has not been evaluated. Negative results do not rule out the presence of SARS-CoV-2, influenza A, and/or influenza B. Fact sheets for the EUA can be found at the following links: For Healthcare Providers: https://www.StockRadar.gov/ media/894261/downloa d For Patients: https://www.StockRadar.gov/ media/981258/downloa d [facility] ED Clinical Summaryon 2019 ED Clinical Summary [address] [address] ED Clinical Summary Person Information Name: Tez Fox/[facility] Age: 24 Years : 1995 Sex: Male PCP: Marital Status: Single Phone: Race: White Ethnicity: Not or Language: [place] Citizen Visit Reason: Back pain; Abscess - perineal or perirectal; Weakness or fatigue Acuity: 4 Enc Type: Emergency Med Service: Emergency Medicine Arrival: 03/22/2020 00:17:07 Discharge: 03/22/2020 01:29:00 LOS: 000 01:12 Checkin: 03/22/2020 00:17:07 Checkout: 03/22/2020 01:29:00 Dispo Type: Home or Self Care Address: [address] [place] [address] [address] [place] [id number] Provider Notes: Diagnosis: 1:Pilonidal cyst with abscess Problems No Problems Documented Smoking Status: Smoking Status Never (less than 100 in lifetime) Functional Status: Sensory Deficits: History of Falls: Mobility Assistance Prior to Admission: ADLs: Current Level of Assistance for Self-Care/Mobility: Cognitive Status: Allergies No Known Allergies Laboratory or Other Results This Visit (last charted value for your 03/22/2020 visit) No Laboratory or Other Results This Visit Measurements: Height: Weight: Blood Pressure: /96 mmHg BMI: Procedures No Procedures Documented Immunizations No Immunizations Documented This Visit Final Med List: New Medications Printed Prescriptions doxycycline (doxycycline hyclate 100 mg oral capsule) 1 Capsules Oral (given by mouth) 2 times a day for 10 Days. Refills: 0. Last Dose: Printed Prescriptions doxycycline (doxycycline hyclate 100 mg oral capsule) 1 Capsules Oral (given by mouth) 2 times a day for 10 Days. Refills: 0. Care Team Members: Attending Physician: Sam Esquivel MD Consulting Physician: Referring Physician: Provider Role Assigned Unassigned Karina Hinojosa ED Nurse 03/22/2020 00:25:06 Alvin CRUZ, Sam Alvarado ED Provider 03/22/2020 00:40:56 Follow up: With: Address: When: Ankit Lange [address] [place] [address], [address] [place] [address] [phone] Business (1) Comments: for surgery follow up Discharge Orders: Discharge Patient 03/22/20 1:15:00 EST, Discharge to Home, Self Return to Work/School 03/22/20 0:00:00 EST, 03/24/20 0:00:00 EST, 03/22/20 0:00:00 EST Patient Education Information: Pilonidal Cyst, Infected (Incision And Drainage) [facility] Poison Help line: . [facility] Hotline: [place] Tobacco Quit Line: [place], [place]) [address]: [phone] [place], [place]) [address]: [phone] [facility] [address], [place]: [phone] Normal [facility] ED Note-Physicianon 03-22-20 ED Note-Physician Chief Complaint Pt states he has a pilonidal cyst that he has been draining since june, also c/o sciatic pain History of Present Illness Patient is a 24-year-old male who presents emergency department for evaluation of cyst to his lower back/upper buttocks. Has been present for the last several months. He states has been draining intermittently. He states pain has become worse over the last several days. He states when he gets severe he feels it radiating down his leg. He states it hurts to move either leg when pain is severe. He denies any associated fevers. He denies any recent trauma or injury. He denies any change to bowel or bladder habits. He denies any numbness to his inner thighs. Review of Systems GENERAL: [Negative for fevers] EYES: [Negative for eye pain] ENT: [Negative for sore throat] NECK: [Negative for pain] CARDIOVASCULAR: [Negative for chest pain] RESPIRATORY: [Negative for shortness of breath] ABDOMEN/GI: [Negative for abdominal pain] BACK: [Positive for pain] : [Negative for dysuria] MUSCULOSKELETAL: [Negative for arthralgias] SKIN: [Positive for abscess] NEURO: [Negative for headache] Physical Exam CONSTITUTIONAL: well appearing in no acute distress SKIN: Warm, dry, 2cm x 2 cm Area of erythema and fluctuance with surrounding induration to upper mid buttocks. No current drainage. EYES: clear conjunctiva bilaterally HENT: Normocephalic, atraumatic, moist mucus membranes NECK: no obvious swelling, normal range of motion PULMONARY: normal chest rise and fall, no respiratory distress, Breath sounds equal bilaterally CARDIOVASCULAR: regular rate, normal rhythm GASTROINTESTINAL: nondistended, non-tender, No CVA tenderness noted NEUROLOGIC: Patient is alert and oriented to person place and time, and has a GCS of 15. The cranial nerves were assessed and showed a midline tongue protrusion , bilaterally equal shoulder shrug, eyebrows raise symmetrically. Patient is able to puff out cheeks symmetrically. Sensation to light touch equal crossed forehead, cheeks, and mandible. The pupils were equal and reactive to light, extraocular movements are intact. The patient's speech was normal without any evidence of word searching or difficulty with speech. Strength was intact in the upper extremities with 5/5 strength with finger abduction, flexion and extension at elbow. Sensation to light touch was intact in the upper extremities. Patient was able to lift bilateral legs off the bed for approximate 5 seconds. 5/5 strength with big toe dorsiflexion bilaterally. Sensation to light touch equal on bilateral lower extremities. Normal gait MUSCULOSKELETAL: no gross deformities, atraumatic, lower extremities are symmetrical, nontender to palpation, no erythema PSYCHIATRIC: normal mood and affect Vitals & Measurements T: 37.1 ?C (Oral) RR: 18 BP: 139/96 SpO2: 99% Additional Vitals Peripheral Pulse Rate: 80 bpm Procedure No qualifying data available. ASA Documentation Medical Decision Making On evaluation, patient is in no distress. Normal neuro examination. Normal gait. No red flag symptoms for back pain. Patient has infected pilonidal cyst on exam. Wound was anesthetized and incision and drainage was performed. Patient was started on doxycycline. Patient tolerated procedure well. Patient was discharged with instructions to follow-up with PCP in the next 2 to 3 days. Return precautions were discussed. Incision and Drainage Procedure Note Abscess Location: [_Pilonidal cyst__] Anesthesia: [_2cc lido with epi__] Drainage amount/type: [__10cc_] Wound care (packing/type): [_dressing applied__] Specimens Removed: After verbal consent by myself with risks that include nerve, vessel or injury to underlying structures. The area was prepared in sterile fashion. The affected location was anesthesized with local anesthesia in a field block manner and the abscess was incised using an 11-blade scalpel. Loculations were broken up using blunt dissection and cavity irrigated with normal saline. The patient tolerated the procedure well and there were no apparent complications. A sterile dressing was applied. Assessment/Plan 1. Pilonidal cyst with abscess Orders: doxycycline, 1 caps, Oral, BID, X 10 days, # 20 caps, 0 Refill(s), 04/01/20 1:24:00 EST Discharge Patient Return to Work/School Refresh vitals and sections below: Problem List/Past Medical History Ongoing No qualifying data Historical No qualifying data Medications Home No active home medications Inpatient No active inpatient medications Prescriptions doxycycline hyclate 100 mg oral capsule, 100 mg, 1 caps, Oral, BID Allergies No Known Allergies Social History Alcohol Never Substance Abuse Denies All Tobacco Never (less than 100 in lifetime) Use:. Diagnostic Results XRay No qualifying data available (XRay) Computerized Tomagraphy No qualifying data available (CT) Ultrasound No qualifying data available (Ultrasound) Magnetic Resonance Imaging No qualifying data available (MRI) Electronically signed by Sam Esquivel MD 03/22/20 06:48 EST Normal [facility] Vital Signs Date Time Vital Sign Value Performing Clinician Balbina cruz 07-28-2020 14:23-0400 Body height 172.7 cm Torito Conner MD Work Phone: [facility] 07-28-2020 14:23-0400 Body mass index (BMI) [Ratio] 39.53 kg/m2 Torito Conner MD Work Phone: [facility] 07-28-2020 14:23-0400 Body weight 117.94 kg Torito Conner MD Work Phone: [facility] 07-28-2020 14:23-0400 Respiratory rate 18 /min Torito Conner MD Work Phone: [facility] 07-16-2020 11:49-0400 Body temperature 97.81 [degF] Torito Conner MD Work Phone: [facility] 07-16-2020 11:49-0400 Diastolic blood pressure 74 mm[Hg] Torito Conner MD Work Phone: [facility] 07-16-2020 11:49-0400 Heart rate 92 /min Torito Conner MD Work Phone: [facility] 07-16-2020 11:49-0400 Respiratory rate 16 /min Torito Conner MD Work Phone: [facility] 07-16-2020 11:49-0400 SaO2% (BldA) [Mass fraction] 94 % Torito Conner MD Work Phone: [facility] 07-16-2020 11:49-0400 Systolic blood pressure 116 mm[Hg] Torito Conner MD Work Phone: [facility] 07-14-2020 09:34-0400 Body height 172.7 cm Torito Conner MD Work Phone: [facility] 07-14-2020 09:34-0400 Body mass index (BMI) [Ratio] 39.53 kg/m2 Torito Conner MD Work Phone: [facility] 07-14-2020 09:34-0400 Body weight 117.94 kg Torito Conner MD Work Phone: [facility] 06-25-2020 09:45-0400 BMI (Body Mass Index) 39.53 kg/m2 [facility] 06-25-2020 09:45-0400 Body weight 117.94 kg Torito [facility] 06-25-2020 09:45-0400 BP Diastolic 86 mm[Hg] Torito [facility] 06-25-2020 09:45-0400 BP Systolic 153 mm[Hg] Torito [facility] 06-25-2020 09:45-0400 Height 172.7 cm [facility] 06-25-2020 09:45-0400 Pulse (Heart Rate) 91 /min Torito [facility] 06-25-2020 09:45-0400 Pulse Oximetry 96 % Torito [facility] 06-25-2020 09:45-0400 Respiratory Rate 18 /min Torito [facility] 06-11-2020 11:06-0400 BMI (Body Mass Index) 39.53 kg/m2 [facility] 06-11-2020 11:06-0400 Body weight 117.94 kg Torito [facility] 06-11-2020 11:06-0400 BP Diastolic 86 mm[Hg] [facility] 06-11-2020 11:06-0400 BP Systolic 133 mm[Hg] [facility] 06-11-2020 11:06-0400 Height 172.7 cm [facility] 06-11-2020 11:06-0400 Pulse (Heart Rate) 85 /min [facility] 06-11-2020 11:06-0400 Pulse Oximetry 97 % [facility] 06-11-2020 11:06-0400 Respiratory Rate 18 /min [facility] 05-28-2020 11:43-0500 BMI (Body Mass Index) 39.53 kg/m2 Torito [facility] 05-28-2020 11:43-0500 Body weight 117.94 kg Torito [facility] 05-28-2020 11:43-0500 Height 172.7 cm Torito [facility] 05-28-2020 11:43-0500 Respiratory Rate 18 /min Torito [facility] 05-26-2020 09:39-0500 BMI (Body Mass Index) 39.53 kg/m2 [facility] 05-26-2020 09:39-0500 Body Temperature 97.5 [degF] [facility] 05-26-2020 09:39-0500 Body weight 117.94 kg [facility] 05-26-2020 09:39-0500 BP Diastolic 88 mm[Hg] [facility] 05-26-2020 09:39-0500 BP Systolic 134 mm[Hg] [facility] 05-26-2020 09:39-0500 Height 172.7 cm [facility] 05-26-2020 09:39-0500 Pulse (Heart Rate) 109 /min [facility] 05-26-2020 09:39-0500 Pulse Oximetry 96 % [facility] 05-26-2020 09:39-0500 Respiratory Rate 16 /min [facility] 04-28-2020 08:49-0500 Body height 175.3 cm Jada Valerio MD Work Phone: [facility] 04-28-2020 08:49-0500 Body mass index (BMI) [Ratio] 35.29 kg/m2 Jada Valerio MD Work Phone: [facility] 04-28-2020 08:49-0500 Body temperature 97.2 [degF] Jada Valerio MD Work Phone: [facility] 04-28-2020 08:49-0500 Body weight 108.41 kg Jada Valerio MD Work Phone: [facility] 04-28-2020 08:49-0500 Diastolic blood pressure 96 mm[Hg] Jada Valerio MD Work Phone: [facility] 04-28-2020 08:49-0500 Heart rate 112 /min Jada Valerio MD Work Phone: [facility] 04-28-2020 08:49-0500 Respiratory rate 18 /min Jada Valerio MD Work Phone: [facility] 04-28-2020 08:49-0500 SaO2% (BldA) [Mass fraction] 97 % Jada Valerio MD Work Phone: [facility] 04-28-2020 08:49-0500 Systolic blood pressure 149 mm[Hg] Jada Valerio MD Work Phone: [facility] 08-25-2019 17:45-0400 BP Diastolic 83 mm[Hg] [employer] [facility] 08-25-2019 17:45-0400 BP Systolic 125 mm[Hg] [employer] [facility] [employer] [employer] 08-25-2019 17:45-0400 Pulse (Heart Rate) 80 /min [employer] [facility] [employer] 08-25-2019 17:45-0400 Pulse Oximetry 95 % [employer] 08-25-2019 17:01-0400 Body Temperature 98.2 [degF] [employer] [facility] 08-25-2019 17:01-0400 Respiratory [facility] 20 /[facility] Encounter Date Encounter Type Care Provider Facility Start: 06-26-2022 End: 06-26-2022 ambulatory TREY DAY . Facility:[facility] Start: 02-07-2022 End: 02-07-[address] JANUARY ELLISON Facility:[facility] Start: 07-28-2020 End: 07-28-2020 ambulatory TORITO CONNER [facility] Start: 07-28-2020 End: 07-28-2020 Postop follow up visit related to original px Torito Conner MD Work Phone: [facility] Comment on above: Pilonidal cyst (Prim liliana Dx) Start: 07-16-2020 End: 07-16-2020 Anesthesia consultation Chase Sutton MD Work Phone: [facility] Start: 07-16-2020 End: 07-16-2020 ambulatory PHYSICIAN [facility] Start: 07-16-2020 End: 07-16-2020 Subsequent hospital visit by physician Torito Conner MD Work Phone: [facility] Start: 06-25-2020 End: 06-25-2020 Admission to day surgery Torito Conner Work Phone: [facility] Comment on above: Pilonidal cyst (Prim liliana Dx) Start: 06-25-2020 End: 06-25-2020 ambulatory TORITO CONNER [facility] Start: 06-25-2020 End: 06-25-2020 Office outpatient visit 40 minutes Torito Conner Work Phone: [facility] Comment on above: Pilonidal cyst with abscess (Primary Dx) Start: 06-11-2020 End: 06-11-2020 Orders Only Torito Conner Work Phone: [facility] Start: 06-11-2020 End: 06-11-2020 Office outpatient visit 25 minutes Torito Conner Work Phone: [facility] Comment on above: Pilonidal cyst with abscess (Primary Dx) Start: 05-28-2020 End: 05-28-2020 ambulatory TORITO CONNER [facility] Start: 05-28-2020 End: 05-28-2020 Office outpatient new 45 minutes Torito Conner Work Phone: [facility] Comment on above: Pilonidal cyst with abscess (Primary Dx) Start: 05-26-2020 End: 05-26-2020 Emergency department patient visit PHYSICIAN GALI [facility] Start: 05-26-2020 End: 05-26-2020 Emergency department patient visit Naveen Kemp Work Phone: [facility] Emergency Department Comment on above: Pilonidal abscess (P rimary Dx) Start: 05-20-2020 End: 05-20-2020 Emergency department patient visit JAMEEL MENDEZ [facility] Start: 04-28-2020 End: 04-28-2020 Emergency department patient visit JADA VALERIO [facility] Start: 04-28-2020 End: 04-28-2020 Emergency department patient visit Jada Valerio MD Work Phone: [facility] Emergency Department Comment on above: COVID-19 (Primary Dx ) Start: 03-22-2020 End: 03-22-2020 Emergency department patient visit Sam Esquivel Facility:[facility] Start: 08-25-2019 End: 08-25-2019 Emergency department patient visit Geraldo Goyal Work Phone: [facility] Emergency Medicine Procedures Date Procedure Procedure Detail Performing Clinician Start: 07-16-2020 AN PERIPHERAL IV Chase Sutton MD Work Phone: Start: 07-16-2020 AIRWAY ETT Andrew Michel BENEFITS TECHNICIAN Work Phone: Start: 07-16-2020 Glucose measurement Reuben Conner MD Work Phone: Start: 07-16-2020 Gluc bld gluc mntr d ev cleared fda spec home use Nam Blair DO Work Phone: Start: 04-28-2020 Iaadiadoo streptococ cus group a Jada aVlerio MD Work Phone: Start: 04-28-2020 SARS-CoV-2 (COVID-19 ) RNA [Presence] in Respiratory specimen by BRIANNE with probe detection Jada Valerio MD Work Phone: Plan of Treatment Date Care Activity Detail Author Start: 11-24-2020 Influenza vaccination Sequenti al Influenza Vaccine (Season Ended) [facility] Start: 07-28-2020 End: 07-28-2020 Follow-up encounter 07/28/2020 Follow-Up General Surgery Torito Conner MD [address] [place] [address] [phone] [facility] Start: 07-16-2020 End: 07-16-2020 Hospital Encounter [facility] Comment on above: EXCISION OF PILONIDA L CYST Start: 06-25-2020 End: 06-25-2020 Office Visit 06/25/2020 Office Visit General Surgery Torito Conner MD [facility] [place] [address] [phone] [facility] Start: 06-11-2020 End: 06-11-2020 Office Visit 06/11/2020 Office Visit General Surgery Torito Conner MD [facility] [place] [address] [phone] [facility] Start: 05-28-2020 End: 05-28-2020 Office Visit 05/28/2020 Office Visit General Surgery Torito Conner MD [address] [facility] [place] [address] [phone] [facility] Start: 11-25-2019 Influenza vaccination [facility] Start: 11-25-2019 Influenza vaccinatio n given Sequential Influenza Vaccine (#1) [facility] Start: 07-19-2015 Third diphtheria, te tanus and acellular pertussis (DTaP) vaccination TDAP (ADULT) [facility] Start: 2014 Hepatitis C antibody , confirmatory test [facility]atitis C Screening [facility] Start: 2014 Hepatitis C screening Hepatitis C Sc reening [facility] Start: 2014 Tetanus vaccination [facility] Start: 2012 COVID-19 Vaccine (1 of 2) COVI D-19 Vaccine (1 of 2) [facility] Start: 2012 COVID-19 Vaccine (1) COVID-19 Vaccin e (1) [facility] Start: 07-19-2011 HIV screening HIV Screening [facility] Start: 2009 HIV screening HIV SCREENING DISCUSSION [facility] Start: 2008 Adolescent depressio n screening assessment Depression Screening (PHQ9) [facility] Start: 2008 Depression screening using PHQ-9 (Patient Health Questionnaire 9) score Depression Screening (PHQ9) [facility] Start: 07-19-2007 Vaccination for jose angel n papillomavirus [facility] Start: 07-19-1999 History and physical examination, annual for health maintenance Wellness Visit [facility] Start: 1996 Tetanus vaccination Tetanus: Every 1 0yrs [facility] Procedure on tissue specimen [facility] Comment on above: Release Upon Orderin g for 1 Occurrences starting 07/16/2020 End: 04-28-2020 Streptococcus pyogenes [Presence] in Throat by Organism specific culture Strep A Culture, Throat Microbiology PEPITO Once for 1 Occurrences starting 04/28/2020 until 04/28/2020, 1 completed [facility] Comment on above: Once for 1 Occurrenc es starting 04/28/2020 until 04/28/2020, 1 completed Streptococcus pyogen es [Presence] in Throat by Organism specific culture Strep A Culture, Throat Microbiology Routine 04/28/2020 9:24 AM EST [facility] Payers Date Payer Category Payer Unknown [id number] 2020 Self-pay 1995 Unknown [id number] [id number] 1996 Unknown [id number] [id number] 1996 Unknown [id number] 1996 Unknown [id number] 1959 Self-pay [id number] Social History Date Type Detail Facility Start: 08-25-2019 End: 04-28-2020 Tobacco smoking status NJIS Current every day smoker [facility] History of tobacco use Cigarette Smoker [facility] Start: 08-25-2019 End: 04-28-2020 Tobacco use and exposure Never used [facility] Start: 08-25-2019 Alcohol intake Lifetime non-d shaka (finding) [facility] Start: 08-25-2019 History SDOH Alcohol Frequency 1 [facility] Start: 08-25-2019 Tobacco Comment 3 cigarettes daily [facility] Sex Assigned At Not on file [facility] Exposure to SARS-CoV -2 (event) Not sure [facility] Start: 04-28-2020 End: 05-26-2020 Cigarettes smoked current (pack per day) - Reported [facility] Start: 04-28-2020 End: 05-26-2020 Alcohol intake Ex-drinker (finding) [facility] Exposure to SARS-CoV -2 (event) Yes [facility] Start: 07-14-2020 Tobacco Comment 2 cigatettes a day [facility] Start: 07-14-2020 Alcohol Comment states used t o be an alcoholic [facility] Clinical Notes 04-28-2020 to 07-29-2020 Torito Conner MD - 07/29/2020 8:25 AM EDTDischarge Instr - Other OrdersAdditional InstructionsAddendum Note - Chase Sutton MD - 07/16/2020 11:10 AM EDTProcedure Summary Note Date & Type Note Facility 07-29-2020 History of Presen t illness Narrative 07/29/2020 The patient presents after recent surgery - Mild, appropriate pain Incisions are healing well. Activity is unrestricted. Return for Follow up here as needed. Torito Conner MD ICD-10-CM ICD-9-CM 1. Pilonidal cyst L05.91 685.1 documented in this encounter [facility] 07-16-2020 Hospital Discharg e instructions Mayra Armando RN - 07/16/2020 11:53 AM EDT norco given at noon Hillary Rodney RN - 07/16/2020 Pilonidal Cyst Excision: What to Expect at Home Your Recovery You had surgery to remove a pilonidal cyst. How long it will take for you to heal depends on the way your surgery was done. If the cut (incision) was closed with stitches, it will probably take about 4 weeks to completely heal. If your incision is left open, it may take from a few weeks to several months to heal. After the incision has healed, you will have a scar where the cyst was removed. This will fade and become softer with time. Most people can go back to work and most activities after 2 to 4 weeks. Until you have completely healed, you will need to avoid strenuous exercise and activities that require long periods of sitting. This care sheet gives you a general idea about how long it will take for you to recover. But each person recovers at a different pace. Follow the steps below to get better as quickly as possible. How can you care for yourself at home? Activity Rest when you feel tired. Getting enough sleep will help you recover. Try to walk each day. Start by walking a little more than you did the day before. Bit by bit, increase the amount you walk. Walking boosts blood flow and helps prevent pneumonia and constipation. Shower as usual. Pat the area around your incision dry with a towel when you are done. Avoid baths until the wound is completely healed. Keep the area dry and clean. Ask your doctor when you can drive again. Avoid sitting for a long time or sitting on hard surfaces until your incision has healed. Most people are able to return to work within 2 to 4 weeks after surgery. Diet You can eat your normal diet. If your stomach is upset, try bland, low-fat foods like plain rice, broiled chicken, toast, and yogurt. Drink plenty of fluids (unless your doctor tells you not to). You may notice that your bowel movements are not regular right after your surgery. This is common. Try to avoid constipation and straining with bowel movements. You may want to take a fiber supplement every day. If you have not had a bowel movement after a couple of days, ask your doctor about taking a mild laxative. Medicines Your doctor will tell you if and when you can restart your medicines. He or she will also give you instructions about taking any new medicines. If you take aspirin or some other blood thinner, ask your doctor if and when to start taking it again. Make sure that you understand exactly what your doctor wants you to do. Take pain medicines exactly as directed. ? If the doctor gave you a prescription medicine for pain, take it as prescribed. ? If you are not taking a prescription pain medicine, ask your doctor if you can take an cqgf-zul-bjktcjx medicine. If your doctor prescribed antibiotics, take them as directed. Do not stop taking them just because you feel better. You need to take the full course of antibiotics. If you think your pain medicine is making you sick to your stomach: ? Take your medicine after meals (unless your doctor has told you not to). ? Ask your doctor for a different pain medicine. Incision care If your incision was closed with stitches: ? Wash the area daily with warm, soapy water and pat it dry. Don't use hydrogen peroxide or alcohol, which can slow healing. ? You may cover the area with a gauze bandage if it weeps or rubs against clothing. Change the bandage every day. ? Keep the area clean and dry. If your incision was left open to heal, change the bandage, called a dressing, as instructed by your doctor. ? Dressing changes may hurt at first. Taking pain medicine about half an hour before you change the dressing can help. ? If your dressing sticks to your wound, try soaking the dressing in warm water for about 10 minutes before you remove it. You can do this in the shower or by placing a wet washcloth over the dressing. ? You may notice greenish tariq fluid from your wound as you start to heal. This is normal. It is a sign that your wound is healing. Other instructions Use a doughnut cushion if sitting is uncomfortable. Keep the area around your wound free from hair. Ask your doctor what method of hair removal will work best. Follow-up care is a [place] part of your treatment and safety. Be sure to make and go to all appointments, and call your doctor if you are having problems. It's also a good idea to know your test results and keep a list of the medicines you take. When should you call for help? Call 911 anytime you think you may need emergency care. For example, call if: You passed out (lost consciousness). You have sudden chest pain and shortness of breath, or you cough up blood. You have severe belly pain. Call your doctor now or seek immediate medical care if: You have pain that does not get better after you take your pain medicine. Your incision was closed with stitches and the stitches come loose, or your incision comes open. Bright red blood has soaked through the bandage over your incision. You have signs of infection, such as: ? Increased pain, swelling, warmth, or redness. ? Red streaks leading from the incision. ? Pus draining from the incision. ? A fever. You have new or worse nausea or vomiting. You are too sick to your stomach to drink any fluids. You cannot keep down fluids. Watch closely for changes in your health, and be sure to contact your doctor if you have any problems. Where can you learn more? Log into your personal health record on [email or web address] and enter C004 in the Education box to learn more about Pilonidal Cyst Excision: What to Expect at Home. Current as of: September 25, 2019 Content Version: 12.8 [employer]. Care instructions adapted under license by your healthcare professional. If you have questions about a medical condition or this instruction, always ask your healthcare professional. [employer] disclaims any warranty or liability for your use of this information. documented in this encounter [facility] 07-16-2020 Miscellaneous Notes Addendum created 07/16/20 1110 by Chase Sutton MD Cosign clinical note Addendum created 07/16/20 1025 by Chase Sutton MD Edit attestation on clinical note documented in this encounter [facility] 07-16-2020 Procedure anesthe rika Narrative Procedure Name Responsible Anesthesiologist Anesthesia Start Time Anesthesia Stop Time EXCISION OF PILONIDAL CYST (N/A ) Chase Sutton MD 07/16/20 0850 07/16/20 1014 Events Date Time Event Comment 07/16/2020 0650 0846 AN Equip Check 0850 An Start 0850 Patient Verification 0850 An Start Data 0858 An Induction 0900 An Intubation 0901 Anesthesia Ready 1001 Emergence MOS OR 07 1004 An Extubation 1008 an stop data 1013 Handoff I completed my SBAR handoff to the receiving nurse in the PACU/unit. 1014 An Stop Meds Name Total fentaNYL 50 mcg lidocaine 2% 100 mg propofol 200 mg succinylcholine 140 mg ondansetron 4 mg dexamethasone 4 mg ceFAZolin (ANCEF) IVPB 2 g (premix) 2,00 0 mg lactated Ringers infusion 900 mL * Agents No agents on file. * Blood No blood administrations on file. Lines, Drains, and Airways Type Details Placement Removal Negative Pressure Wound Therapy 07/16/20; 946; Dr. Conner; Surgical; Sacral; Medial 07/16/20946 by Maeve Conley RN Wound 07/16/20; 946; Surg ical Wou; Buttock; SYSTEM 4 X 8IN HENRY 7 NEG PRESS WOUND THERAPY (x1), STRIP .5 X 4IN SKIN CLOSURE (x1), SOLUTION 2/3CC MASTISOL ADHESIVE (x4) 07/16/20946 by Maeve Conley RN Peripheral IV Placement Date: 07/16/20; Placement Time: 1000; Existing LDA Placed by: Other (Comment) (anesthesia); Orientation: Anterior, Right; Location: Hand 07/16/20 1000 by Laila Hernandez RN Peripheral IV Placement Date: 07/16/20; Placement Time: 728; Orientation: Left; Location: Hand; Site Prep: Chlorhexidine ; Local Anes: None; Inserted by: Meek Amrando RN; Patient Tolerance: Tolerated poorly (patient c/o pain upon insertion); Removal Date: 07/16/20; Removal Time: 1013 (removed via procedure documentation) 07/16/20 0729 by Hillary Rodney RN 07/16/20 1013 by Scott Sorto ETT Placement Date: 07/16/20; Placement Time: 09 (created via procedure documentation); Mask Ventilation: Mask ventilation not attempted; Type: Oral; Tube Size: 7.5 mm; Grade View: 1; Insertion Attempts: 1; Removal Date: 07/16/20; Removal Time: 1005 07/16/20 0912 by Andrew Michel CRNA 07/16/20 1005 by Scott Sorto documented in this encounter [id number] Surgical operation note* Anesthesia Postprocedure Evaluation - Scott Sorto - 07/16/2020 10:13 AM EDT Anesthesia Post Evaluation * * Refer to nursing documentation for PACU vitals * * Patient participation: patient participated Mental status: sleepy but conscious Pain management: adequate Anesthetic complications: no Nausea / vomiting: no Cardiovascular status: hemodynamically stable Respiratory / airway status: airway patent, spontaneous ventilation and face mask Postoperative hydration: acceptable Comment: Patient has satisfactorily recovered from his anesthetic. Associated attestation - Chase Sutton MD - 07/16/2020 10:25 AM EDT I have personally seen and examined the patient. I have reviewed the note and concur with the documentation of Tez Griffin. * Anesthesia Procedure Notes - Scott Sorto - 07/16/2020 10:13 AM EDT Associated Order(s): Peripheral IV Peripheral IV Related to anesthetic: yes Size: 20 G Orientation: right Location: hand Site prep: alcohol Local anesthetic: none Technique: anatomical landmarks Number of attempts: 1 *See MAR for medication administration * Anesthesia Procedure Notes - Andrew Michel CRNA - 07/16/2020 9:12 AM EDT Associated Order(s): ETT Airway ETT Airway Mask ventilation: mask ventilation not attempted Technique: intubating stylet and video laryngoscopy Type: oral Tube size: 7.5 mm Final laryngoscope: video laryngoscope 3 Location: oral Final grade: 1 Insertion attempts: 1 Placement verification: auscultation, end tidal CO2, symmetrical chest wall movement and cuff palpation Secured at: 22 cm (measured from the teeth) Secured by: tape Bite block: none Lip/tooth/tongue trauma: no *See MAR for medication administration * Anesthesia Preprocedure Evaluation - Chase Sutton MD - 07/16/2020 6:46 AM EDT ANESTHESIA PREPROCEDURE EVALUATION Anesthesia Plan ASA: 2 Type: general Airway: endotracheal tube Induction: intravenous Anesthetic plan and risks as outlined in the consent discussed with: patient Plan discussed with: Anesthesiologist Physical Exam Airway Mallampati: III TM Distance: >3 FB Neck ROM: full Mouth opening: >3 FB Cardiovascular - normal Pulmonary - normal Neurological - normal Dental Dental exam is normal and age appropriate Review of Systems / Medical History - Reviewed: ECG, patient summary, anesthesia history, nursing notes, medical history, H&P and labs / results - No history of anesthetic complications Pulmonary Positive: sleep apnea (presumptive) Neurological / Psychological - negative Cardiovascular - negative Gastrointestinal / Hepatic / Renal NPO Status > 8 hours Positive: GERD Endocrine / Musculoskeletal Comment: Hypoglycemia Positive: obesity documented in this [id number] Miscellaneous Notes* Brief Op Note - Torito Conner MD - 07/16/2020 10:12 AM EDT Brief Post Operative Note Patient Name: Tez Griffin : 1995 (24 y.o.) Date of Service: 07/16/2020 CSN: [id number] Procedure(s): EXCISION OF PILONIDAL CYST Pre-Operative Diagnoses: * Pilonidal cyst [L05.91] Post-Operative Diagnoses: * Pilonidal cyst [L05.91] Surgeon(s) and Role: * Torito Conner MD - Primary Anesthesiologist: Chase Sutton MD BENEFITS TECHNICIAN: Andrew Michel CRNA Student Nurse Buckle Stapler: Scott Sorto Scrub Person: Mikaela Estrella RN Graphite Grinder [place]ee: Maeve Conley RN Graphite Grinder Preceptor: John Almanzar RN Operative findings: Complex pilonidal cyst Intra and immediate post-operative complications: none Type of anesthesia used: General Estimated blood loss: 0 mL Estimated urine output: 0 mL Specimen(s): ID Type Source Tests Collected by Time Destination A : Tissue Pilonidal Cyst / Sinus TISSUE EXAM Torito Conner MD 07/16/2020 0921 Implant(s): * No implants in log * Drain(s): * No LDAs found * Wound(s): Wound 07/16/20 Surgical Wound Buttock (Active) Torito Conner MD 07/16/2020 10:12 AM * Op Note - Torito Conner MD - 07/16/2020 9:18 AM EDT Dictation on: 07/16/2020 10:19 AM by: TORITO CONNER [[id number]] documented in this [id number] Nurse Note* Martha Deal RN - 07/14/2020 9:40 AM EDT Pre-Operative Directions for Using Chlorhexidine (Hibiclens) Skin Cleanser Hibiclens reduces the number of germs on your skin, which will decrease the chances of developing asurgical site infection. By following the instructions below, you can be sure your skin is as free of germs as possible before your surgery and help prevent infections. DO NOT USE if you are allergic to chlorhexidine gluconate. DO NOT USE in the genital (private) areas. DO NOT USE near the eyes or ears to avoid permanent injury to those areas. 1. Shower the night before surgery AND in the morning before leaving for the hospital. 2. For each shower, you will use one half (1/2) of the Hibiclens bottle, 2 washcloths and a clean towel. 3. Shampoo and rinse hair as you normally do 4. Wash face, neck and genital area with one washcloth using an antibacterial (i.e. Dial) soap. Rinse well. Set this washcloth aside. 5. Work up a good lather on the 2nd (clean) washcloth using the bottle of Hibiclens. 6. Turn the water off to prevent rinsing the soap off too soon. 7. Gently scrub from the neck down for 5 minutes, paying special attention to the area where the surgery will be. 8. Turn water back on the rinse thoroughly. 9. Pat dry using a clean towel and put on clean clothes. 10. The Hibiclens may make your skin fell dry, but DO NOT use and powder or lotions, as this will prevent it from working as good as it should. Prior to Surgery Please do not eat after midnight on the evening prior to your surgery. You may have clear liquids up to 2 hours prior to coming in for your procedure. You may brush your teeth the morning of surgery but be sure not to swallow. No smoking or gum chewing after midnight on the evening prior to your surgery. Please do not place any pins or barrettes in your hair or apply any makeup on the morning of surgery. Please remove all nail qatari, and if the operative site is your hand, please remove all artificialnails. Please remove all piercing's and jewelry on the morning of surgery. Please shower or bathe the night before/morning of your surgery, but do not apply any lotions, makeup or powder. Please use Hibiclens shower with provided instructions if indicated by physician. If you currently utilize a walker, cane, crutches, wheelchair, or other assistive device, please bring these items with you on the day of surgery. If you use a CPAP, please bring this with you the day of surgery. Please bring your glasses/contacts and hearing aids with you - and if possible the cases that accompany these items. Pediatric patients (ages 12 and under) must be accompanied by an adult who will stay with that patient prior to surgery. Please bring an updated medication list the day of surgery of all medications, vitamins, supplements, and over the counter medications you are currently taking. Please bring baby food, bottles, underwear for small children. Please wear loose, comfortable, appropriate clothing and footwear for discharge. Remember to bring your insurance card and photo ID on the day of surgery. Parking at [place] is free - you may park and then proceed to Registration in the [facility] front lobby. Please take the following medications the morning of surgery with a sip of water unless otherwise instructed by surgeon/physician: no meds After your surgery You must have an adult present at discharge to drive you home. documented in this [id number] Hospital Discharge instructions * Instructions* Jada Valerio MD - 04/28/2020 Please return if any worsening shortness of breath, chest pain, inability eat or drink. Please follow-up with your primary doctor. Please quarantine for ten days. * Attachments The following attachments cannot be sent through Care Everywhere. * Coronavirus Disease (COVID-19): General Info ([place] Citizen) documented in this [id number] Emergency department Note* Mary Burciaga RN - 04/28/2020 10:31 AM EST Patient standing in doorway wearing exam gloves and coat talking on the phone. Patient educated on hand hygiene and discharge instructions given to patient. Patient denies any questions or needs. Ambulates to lobby no signs or symptoms of distress. * Jada Valerio MD - 04/28/2020 9:14 AM EST ED PROVIDER NOTE [facility] EMERGENCY DEPARTMENT NAME: Tez Griffin AGE: 24 y.o. : 1995 VISIT DATE: 04/28/2020 CSN: [id number] PCP: Physician No Chief Complaint Patient presents with Fever Tachycardia This is a 24-year-old male with no significant past medical history presents with subjective feversand chills and myalgias Patient reports today he has been feeling tired and fatigued. Having some subjective fevers and chills. Having muscle aches. Reports a mild sore throat. No difficulty swallowing. No drooling. No change in his voice. No difficulty breathing. Denies any chest pain or pressure. No cough or shortness of breath. No abdominal pain nausea vomiting. No diarrhea. No dysuria hematuria frequency. Past Medical History: Diagnosis Date Hypoglycemia History reviewed. No pertinent surgical history. History reviewed. No pertinent family history. Social History Socioeconomic History Marital status: Single Spouse name: Not on file Number of children: Not on file Years of education: Not on file Highest education level: Not on file Occupational History Not on file Social Needs Financial resource strain: Not on file Food insecurity Worry: Not on file Inability: Not on file Transportation needs Medical: Not on file Non-medical: Not on file Tobacco Use Smoking status: Current Every Day Smoker Packs/day: 0.25 Smokeless tobacco: Never Used Substance and Sexual Activity Alcohol use: Not Currently Drug use: Never Sexual activity: Not on file Lifestyle Physical activity Days per week: Not on file Minutes per session: Not on file Stress: Not on file Relationships Social connections Talks on phone: Not on file Gets together: Not on file Attends adventism service: Not on file Active member of club or organization: Not on file Attends meetings of clubs or organizations: Not on file Relationship status: Not on file Other Topics Concern Not on file Social History Narrative Not on file No current outpatient medications on file prior to encounter. No Known Allergies Review of Systems Constitutional: Positive for chills and fever. HENT: Negative for rhinorrhea and sore throat. Eyes: Negative for pain and redness. Respiratory: Negative for cough and shortness of breath. Cardiovascular: Negative for chest pain. Gastrointestinal: Negative for abdominal pain, constipation, diarrhea, nausea and vomiting. Genitourinary: Negative for dysuria, frequency and hematuria. Musculoskeletal: Positive for myalgias. Negative for arthralgias. Skin: Negative for rash. Neurological: Negative for numbness and headaches. Psychiatric/Behavioral: Negative for behavioral problems. Patient Vitals for the past 24 hrs: BP Temp Pulse Resp SpO2 Height Weight 04/28/20 0849 (!) 149/96 97.2 F (36.2 C) (!) 112 18 97 % 5' 9 108.4 kg (239 lb) Physical Exam Vitals signs and nursing note reviewed. Constitutional: Appearance: Normal appearance. HENT: Head: Normocephalic and atraumatic. Mouth/Throat: Mouth: Mucous membranes are moist. Eyes: Conjunctiva/sclera: Conjunctivae normal. Pupils: Pupils are equal, round, and reactive to light. Neck: Musculoskeletal: Normal range of motion and neck supple. Cardiovascular: Rate and Rhythm: Normal rate and regular rhythm. Pulmonary: Effort: Pulmonary effort is normal. Breath sounds: Normal breath sounds. Abdominal: Palpations: Abdomen is soft. Tenderness: There is no abdominal tenderness. There is no guarding. Musculoskeletal: General: No swelling or deformity. Skin: General: Skin is warm and dry. Findings: No rash. Neurological: General: No focal deficit present. Mental Status: He is alert and oriented to person, place, and time. Psychiatric: Mood and Affect: Mood normal. Laboratory & Radiographic Imaging (if done): Results for orders placed or performed during the hospital encounter of 04/28/20 COVID-19/Influenza A,B Molecular Specimen: Nasopharyngeal; Swab Result Value Ref Range SARS-CoV-2 Detected (A) Not Detected Influenza A Not Detected Not Detected Influenza B Not Detected Not Detected Rapid Strep Screen Specimen: Throat; Swab Result Value Ref Range Strep A Ag Presumptive Negative for Group A Streptococcus Presumptive Negative for Group A Streptococcus No orders to display Procedures MDM Number of Diagnoses or Management Options COVID-19 Diagnosis management comments: 24-year-old presents with subjective fevers and chills as well as myalgias Differential includes is not limited to Covid, influenza, strep throat Patient has no cough, shortness of breath, focal lung examination findings doubt pneumonia. No abdominal symptoms doubt intra-abdominal infection. No urinary symptoms doubt UTI. We will obtain Covid, flu, strep test and provide Motrin. Covid test positive. Likely etiology of symptoms. Not hypoxic or tachypneic. Will discharge home tomonitor symptoms. Quarantine for 10 days. Follow-up with primary doctor. Return if worsening shortness of breath, chest pain, difficulty breathing. Expressed understanding and agreeable with plan. The patient has been informed that they may have pre-hypertension or hypertension based on a blood pressure reading in the Emergency Department. I recommend that the patient call the primary care provider listed on their discharge instructions or a physician of their choice as soon as possible to arrange follow-up in the next 4 weeks for further evaluation of possible pre-hypertension or hypertension. . Clinical Impression: 1. COVID-19 ED Disposition ED Disposition Condition Comment Discharge Stable Tez Griffin discharged to home/self care in stable condition. Follow-up Information 1. [facility] Emergency Department. Specialty: Emergency Medicine Why: As needed [address] [place] [address] Contact information for after-discharge care Follow-up information has not been specified. Jada Valerio MD 04/28/20 1035 * Leslie Naidu RN - 04/28/2020 8:50 AM EST Bed: 09 Expected date: Expected time: Means of arrival: Comments: triage * Leslie Naidu RN - 04/28/2020 8:46 AM EST Patient states he has not felt good today. He states at work they took his temperature and it was elevated. He states they also told him his heart rate was elevated. [facility]* Diagnosis Pilonidal cyst- Primary Pilonidal cyst with abscess [facility] Diagnosis Pilonidal cyst- Primary [facility] Diagnosis COVID-19- Primary documented in this encounter [facility] Discharge Instructions * Attachments The following attachments cannot be sent through Care Everywhere. * Allergic Reaction ([place] Citizen) documented in this encounter* Attachments The following attachments cannot be sent through Care Everywhere. * Pilonidal Abscess ([place] Citizen) documented in this encounter Assessments Diagnosis Allergic reaction, initial encounter Diagnosis Pilonidal abscess- Primary Pilonidal cyst with abscess Diagnosis Pilonidal cyst with abscess- Primary Diagnosis Pilonidal cyst with abscess- Primary Pilonidal cyst- Primary Diagnosis Pilonidal cyst- Primary Pilonidal cyst Summary Purpose Family History No Family History Records FoundNo Family History Records FoundNo Family History Records FoundNo Family History Records Found Advance Directives No Advanced Directives Records FoundDocuments on File Type Date Recorded Patient Production Grader Expl anation Advance Directives and Livin g Will 05/26/2020 9:50 AM Documents on File Type Date Recorded Patient Production Grader Expl anation Advance Directives and Livin g Will 07/16/2020 5:47 AM Documents on File Type Date Recorded Patient Production Grader Expl anation Advance Directives and Livin g Will 04/28/2020 10:11 AM History of Present Illness * Torito Conner MD - 05/28/2020 12:40 PM EST ASSESSMENT Pilonidal cyst with abscess. PLAN Doxycycline prescription is sent. Patient will apply warm soaks and reevaluate in 2 weeks. DISCUSSION Patient presents with a 4 day history of pain in the intergluteal crease and 2 days of drainage from the area. He has a history of pilonidal abscess that was incised and drained last year, and this is all similar. On exam, he indeed has a pilonidal abscess with an open wound that appears to have decompressed the abscess quite while. There is no cellulitis around it. A urine culture is negative. Hemoglobin 15.3, creatinine 1.2. I have recommended oral antibiotics and warm soaks. He will follow up here in 2 weeks for reevaluation. Prescription is sent. documented in this encounter* Torito Conner MD - 06/11/2020 12:55 PM EDT Dictation on: 06/11/2020 1:00 PM by: TORITO CONNER [[id number]] documented in this encounter* Torito Conner MD - 06/25/2020 10:07 AM EDT ASSESSMENT Pilonidal cyst with small abscess. PLAN Excision of complex pilonidal cyst. DISCUSSION The patient presents for re-evaluation of a pilonidal cyst with abscess. He was able to obtain and take his course of antibiotics. He is having no discomfort and does have a small amount of occasional drainage. On exam, there is a small abscess with a tiny area of fluctuance and scant amount of pusupon palpation. Caudal to this area is a pilonidal sinus tract opening. We discussed the nature of the pilonidal cyst and abscesses and the risk of ongoing tissue destruction with inadequately treated disease. We also discussed the possibility that after surgery, the wound would be left open slightly. Surgical risk includes smoking. The patient will follow up here after excision. documented in this encounter Additional Source Comments Reason for Visit (unrecogniz ed section and content) Reason Comments Allergic Reaction Pt. stated he felt s omething on his right arm and felt pain and then redness going from his fingers to the bend of his elbow. Pt. states he feels SOB. 02 sats are 96% on Room air. Pt. states i am allergic to all bug bites . Pain 06/02. pt. denies having an epi pen with him. Reason Comments Abscess Reason Comments Cyst Pilonidal Cyst- [facility] (05/26/2020) Reason Comments Follow-up 2 week- Pilonidal Cy st Reason Comments Follow-up 2 week- pil cyst Reason Comments Post-op Pil Cyst- 07/16/2020 Reason Comments Fever Tachycardia (unrecognized sect ion and content) No Status Records FoundNo Status Records FoundNo Status Records FoundNo Status Records Found INFORMATION SOURCE (unrecogn ized section and content) DATE CREATED AUTHOR 04/08/2020 [facility] DATE CREATED AUTHOR AUTHOR'S ORGANIZ ATION 07/30/2020 [facility] DATE CREATED AUTHOR AUTHOR'S ORGANIZ ATION 09/11/2020 [facility] DATE CREATED AUTHOR AUTHOR'S ORGANIZ ATION 06/28/2022 [facility] Charleen Martinez RN - 05/26/2020 9:37 AM EST ED Notes (unrecognized secti on and content) Pt reports he had a cyst on his tailbone and was here to have it cut open two months ago and today he was at work and noticed a huge bump on his tailbone and he was doing self defense course and he felt excruciating pain and felt a pop and he felt wetness in his pants. documented in this encounter FOR RECORDS PERTAINING TO PATIENTS WHO ARE OR HAVE BEEN ENROLLED IN A CHEMICAL DEPENDENCY/SUBSTANCEABUSE PROGRAM, SOME INFORMATION MAY BE OMITTED. This clinical summary was aggregated from multiple sources. Caution should be exercised in using it in the provision of clinical care. This summary normalizes information from multiple sources, and as a consequence, information in this document may materially change the coding, format and clinical context of patient data. In addition, data may be omitted in some cases. CLINICAL DECISIONS SHOULD BE BASED ON THE PRIMARY CLINICAL RECORDS. [employer] provides no warranty or guarantee of the accuracy or completeness of information in this document.
--- NOTE | 2023-04-06 07:43 | ED_ITS ---
HPI - General Adult General Stated complaint: LEFT EAR PAIN Time Seen by Provider: 04/06/23 07:38 Source: patient Mode of arrival: walk-in Limitations: no limitations History of Present Illness HPI narrative: patient here complaining of a left-sided earache primarily. He's had about two infections per year recently but he has not been on any antibiotics in the last several months. He also complains of a sore throat. No shortness of breath or chest pain. No headache no pain in his neck. He's not had nausea and vomiting. Related Data Home Medications Medication Instructions Recorded Confirmed No Known Home Medications 01/31/23 04/06/23 Allergies Allergy/AdvReac Type Severity Reaction Status Date / Time No Known Allergies Allergy Mild Verified 04/06/23 07:28 [facility] Social History Smoking status: Former smoker Exam Narrative Exam Narrative: well-hydrated well-nourished slight elevation of his blood pressure. He will be encouraged to follow up with primary care to keep an eye on that. Overall does not appear ill or toxic. Awake alert cognition and mentation are normal. HEENT shows no rhinitis. Right tympanic membrane is normal. The left tympanic membrane is red and dull and retracted there is no perforation or blood. There is no swelling of the external canal. Oral cavity shows mild pharyngeal erythema. He does have some adenitis in the left submandibular area with symptomatic discomfort. Respiratory he has no cough congestion or shortness of breath. Constitutional Vital Signs, click to edit/add: Last Vital Signs Temp 98.6 F 04/06/23 07:20 Pulse 91 H 04/06/23 07:20 Resp 18 04/06/23 07:20 BP 158/97 H 04/06/23 07:20 Pulse Ox 98 04/06/23 07:20 O2 Del Method Room Air 04/06/23 07:20 Course Vital Signs Vital signs: Vital Signs Temperature 98.6 F 04/06/23 07:20 Pulse Rate 91 H 04/06/23 07:20 Respiratory Rate 18 04/06/23 07:20 Blood Pressure 158/97 H 04/06/23 07:20 Pulse Oximetry 98 04/06/23 07:20 Oxygen Delivery Method Room Air 04/06/23 07:20 Temperature 98.6 F 04/06/23 07:20 Pulse Rate 91 H 04/06/23 07:20 Respiratory Rate 18 04/06/23 07:20 Blood Pressure 158/97 H 04/06/23 07:20 Pulse Oximetry 98 04/06/23 07:20 Oxygen Delivery Method Room Air 04/06/23 07:20 Discharge Plan Discharge Clinical Impression: Acute left otitis media Patient Disposition: Home, Self-Care Time of Disposition Decision: 07:45 Prescriptions / Home Meds: No Action No Known Home Medications Additional Instructions: amoxicillin/combined ibuprofen with Tylenol for discomfort/spelled primary care doctor or clinic if symptoms are not improved in four days. Stand Alone Forms: Portal Instructions Referrals: Physician,Non-Staff, MD [Primary Care Provider] - 1 week
== END 2023-04-06 07:54 | disposition home or self-care (01) ==
PROVIDERS: Emergency Provider Emergency Medicine Emergency Medical Services
DX: H66.92 Otitis media, unspecified, left ear (principal); Z87.891 Personal history of nicotine dependence
CPT/HCPCS: 99283